=== PATIENT | male | born 1950 | race Caucasian/White ===

== ENCOUNTER 2020-07-20 23:13 | Emergency (ER) | payer OTHER ==
[~2020-07-20] VITALS: Ht 170.2 cm; Wt 86.2 kg
[~2020-07-20 23:13] MED LIST: LANS30EC; OXYACE5T PO; PARO30
[2020-07-20] MEDS ORDERED: AMOCLA875 PO (23:41)
[2020-07-20] MEDS ORDERED: Norco 5-325 Ta1 EACH PO (23:41)
== END 2020-07-20 23:47 | disposition home or self-care (01) ==
LOC: ER 23:13
DX: K08.89 Other specified disorders of teeth and supporting structures (principal); I10 Essential (primary) hypertension
CPT/HCPCS: 99282; A9270

== ENCOUNTER 2021-08-06 10:11 | Emergency (ER) | payer OTHER ==
[~2021-08-06] VITALS: Ht 170.2 cm; Wt 81.7 kg
[~2021-08-06 10:11] MED LIST changes: +AMOCLA875 PO; +Norco 5-325 Ta1 EACH PO
== END 2021-08-06 15:07 | disposition home or self-care (01) ==
LOC: ER 10:11
DX: C41.2 Malignant neoplasm of vertebral column (principal); I10 Essential (primary) hypertension; K21.9 Gastro-esophageal reflux disease without esophagitis; E78.00 Pure hypercholesterolemia, unspecified
CPT/HCPCS: 99283

== ENCOUNTER 2021-09-15 16:06 | Inpatient (IN) | payer OTHER ==
[~2021-09-15] VITALS: Ht 172.7 cm; Wt 73.2 kg
[2021-09-15 17:39] LABS: Hematocrit 18.5 % (37.0-53.0); Mean Corpuscular HGB 29.7 pg (26.0-34.0); Mean Corpuscular HGB Conc 32.4 g/dL (31.5-36.5); Mean Corpuscular Volume 92 fL (80-100); Mean Platelet Volume 8.7 fL (9.1-12.4); NRBC ABSOLUTE 0.09 K/mm3 (0.00-0.02); NRBC Auto 3.2 /100 WBC (0.0-0.2); Platelet Count 249 K/mm3 (150-400); RDW Coefficient Variation 16.6 % (11.7-14.2); RDW Standard Deviation 53.2 fL (35.1-46.3); Red Blood Cell Count 2.02 M/mm3 (4.30-5.90); White Blood Cell Count 2.83 K/mm3 (4.00-11.30)
[2021-09-15 18:09] LABS: Albumin, Blood 2.5 g/dL (3.4-5.0); Albumin/Globulin Ratio 0.6 (0.8-1.8); Bilirubin, Total 0.4 mg/dL (0.1-1.0); Bun/Creatinine Ratio 27.2 (12.0-20.0); Calcium, Blood 8.2 mg/dL (8.5-10.1); Creatinine, Blood 0.62 mg/dL (0.60-1.20); Globulin, Blood 3.9 g/dL (2.2-4.0); Potassium, Blood 4.2 mmol/L (3.5-5.5); Total Protein, Blood 6.4 g/dL (6.4-8.2)
[2021-09-15] MEDS ORDERED: MIRALAX17 GM PO (18:09)
[2021-09-15] MEDS ORDERED: GABA300 PO (18:09)
[2021-09-15] MEDS ORDERED: Budeprion Xl300 MG PO (18:10)
[2021-09-15] MEDS ORDERED: OMEP20ER PO (18:11)
[2021-09-15] MEDS ORDERED: MORP15ER PO (18:11)
[2021-09-15] MEDS ORDERED: SENN187 PO (18:12)
[2021-09-15] MEDS ORDERED: CALCIUM CIT 311 EAC7 PO (18:13)
[2021-09-15] MEDS ORDERED: ONDA4 PO (18:13)
[2021-09-15] MEDS ORDERED: IBUP800 PO (18:14)
[2021-09-15] MEDS ORDERED: DICLOFENAC SOD100 GM TOP (18:15)
[2021-09-15 18:21] LABS: BAND PERCENT MAN 18 % (0-8); BASOPHILS ABSOLUTE MAN 0.02 K/mm3 (0.00-0.23); BASOPHILS PERCENT MAN 1 % (0-2); EOSINOPHILS ABSOLUTE MAN 0.14 K/mm3 (0.00-0.68); EOSINOPHILS PERCENT MAN 5 % (0-6); LYMPHOCYTES ABSOLUTE MAN 0.36 K/mm3 (0.84-5.20); LYMPHOCYTES PERCENT MAN 13 % (21-46); METAMYELOCYTE ABSOLUTE MAN 0.02 K/mm3 (0.00-0.00); METAMYELOCYTE PERCENT MAN 1 % (0-0); MONOCYTES ABSOLUTE MAN 0.11 K/mm3 (0.16-1.47); MONOCYTES PERCENT MAN 4 % (4-13); MYELOCYTE ABSOLUTE MAN 0.02 K/mm3 (0.00-0.00); MYELOCYTE PERCENT MAN 1 % (0-0); NEUTROPHILS ABSOLUTE MAN 2.12 K/mm3 (1.96-9.15); SEG NEUTROPHILS PERCENT MAN 57 % (41-73); TOTAL CELLS COUNTED 100
[2021-09-15 21:08] LABS: Influenza A, PCR NEGATIVE (NEGATIVE); Influenza B, PCR NEGATIVE (NEGATIVE); Resp Syncytial Virus, PCR NEGATIVE (NEGATIVE); SARS-Cov-2 (COVID-19) PCR, MMC NEGATIVE (NEGATIVE)
[2021-09-16 04:08] LABS: Hematocrit 19.5 % (37.0-53.0); Hemoglobin 6.4 g/dL (13.5-17.5); Mean Corpuscular HGB 29.9 pg (26.0-34.0); Mean Corpuscular HGB Conc 32.8 g/dL (31.5-36.5); Mean Corpuscular Volume 91 fL (80-100); Mean Platelet Volume 8.3 fL (9.1-12.4); NRBC ABSOLUTE 0.05 K/mm3 (0.00-0.02); NRBC Auto 1.9 /100 WBC (0.0-0.2); Platelet Count 210 K/mm3 (150-400); RDW Coefficient Variation 15.8 % (11.7-14.2); RDW Standard Deviation 51.5 fL (35.1-46.3); Red Blood Cell Count 2.14 M/mm3 (4.30-5.90); White Blood Cell Count 2.66 K/mm3 (4.00-11.30)
[2021-09-16 04:46] LABS: Albumin, Blood 2.2 g/dL (3.4-5.0); Albumin/Globulin Ratio 0.6 (0.8-1.8); Bilirubin, Total 0.5 mg/dL (0.1-1.0); Bun/Creatinine Ratio 19.6 (12.0-20.0); Creatinine, Blood 0.61 mg/dL (0.60-1.20); Globulin, Blood 3.7 g/dL (2.2-4.0); Total Protein, Blood 5.9 g/dL (6.4-8.2)
--- NOTE | 2021-09-16 05:48 | NUR ---
STAFF ANESTHETIST SUMMARY PT IS AXO X4 AND COMMUNICATING APPROPRIATELY. PT DENYING FEELING SOB BUT DID REQUIRE 2L NC TO MAINTAIN O2 SATS >90%. BP WNL AND STABLE. PT AFEBRILE. TELE SHOWING SR IN THE 70'S THIS SHIFT. PT'S HGB STILL <7 THIS AM SO PROVIDER CONTACTED AND A 2ND UNIT OF PRBC'S WERE ORDERED. PT ABLE TO SLEEP COMFORTABLY FOR MAJORITY OF THE SHIFT. PT DENYING ANY CP OR PRESSURE THIS SHIFT. WILL REPORT TO ONCOMING RN.
[2021-09-16 05:57] LABS: BAND PERCENT MAN 5 % (0-8); BASOPHILS PERCENT MAN 0 % (0-2); EOSINOPHILS ABSOLUTE MAN 0.07 K/mm3 (0.00-0.68); EOSINOPHILS PERCENT MAN 3 % (0-6); LYMPHOCYTES ABSOLUTE MAN 0.42 K/mm3 (0.84-5.20); LYMPHOCYTES PERCENT MAN 16 % (21-46); METAMYELOCYTE ABSOLUTE MAN 0.02 K/mm3 (0.00-0.00); METAMYELOCYTE PERCENT MAN 1 % (0-0); MONOCYTES ABSOLUTE MAN 0.21 K/mm3 (0.16-1.47); MONOCYTES PERCENT MAN 8 % (4-13); MYELOCYTE ABSOLUTE MAN 0.02 K/mm3 (0.00-0.00); MYELOCYTE PERCENT MAN 1 % (0-0); NEUTROPHILS ABSOLUTE MAN 1.88 K/mm3 (1.96-9.15); SEG NEUTROPHILS PERCENT MAN 66 % (41-73); TOTAL CELLS COUNTED 100
--- NOTE | 2021-09-16 10:41 | NUR ---
NURSING PCU DAYSHIFT: Assumed care of pt at approx 0700. A/O, very pleasant, cooperative w/care. C/O mild general weakness and requires SBA for safety though is able to ambulate independently. Skin pale, slightly diaphoretic, no breakdown noted. Denies any pain at rest. Tele in place, NSR, no c/o CP/pressure, SBP 105, no noted edema. L/S w/bibasilar crackles, dyspnea w/exertion, moist/[employer] cough, respiratory discomfort w/deep inspiration. Abd SNT, BT+, voiding w/o difficulty. PIV x2, s/l. No s/s of acute distress this a.m. 2nd unit of PRBC's completed as ordered, tolerated well. Educated pt on importance of deep breathing exercises and provided w/bedside I/S. Held a.m. lovenox d/t anemia until verified w/PMD okay to administer. Pt denies any current needs or questions regarding plan of care, f/u H&H at 1200, cont to monitor for any changes.
[2021-09-16 12:46] LABS: Hematocrit 24.4 % (37.0-53.0); Hemoglobin 8.4 g/dL (13.5-17.5)
--- NOTE | 2021-09-16 17:20 | NUR ---
NURSING PCU DAYSHIFT SUMMARY: No significant changes noted t/o the shift. Pt did have low grade temp of 100.7, tylenol administered as ordered. Pt has been compliant in breathing exercises and use of I/S. Placed on RA, tolerating well w/O2 sat mid 90's. Cardiac status unchanged. Spouse currently at bedside and was provided w/update regarding plan of care. Palliative at bedside this afternoon for supportive visit. No s/s of acute distress at this time. Call light in reach, cont to monitor for any changes.
--- NOTE | 2021-09-16 17:30 | NUR ---
Supportive visit this afternoon. Pt resting in bed and is A&O. Pt denies pain, anxiety, dypnea, and nausea. Pt's spouse is at bedside. Offered therapeutic listening as Pt reports living at home with spouse. Pt has adult children some of whom live local and some live out of state. Pt reports supportive family with children who will drop everything to assist if needed. Listened as Pt and spouse report remaining in a positive state and like to focus on being optimistic regarding his cancer. Continued therapeutic listening and offered suggestions as he continues with treatment. Pt reports his appetite has decreased recently. Encouraged Pt to discuss with his oncologist and PCP if appetite continues to decline. Continued therapeutic listening. Pt is a and this RN thanked him for his service. Pt reports serving in the [employer]. Pt reports being active and likes exercising. He reports used to lifting weights but no longer. Answered questions throughout visit. Pt and spouse express appreciation and report no concerns at this time. Spoke with Pt's Primary RN Chica and discussed case. Palliative Care will remain available.
[2021-09-17 04:18] LABS: BASOPHILS ABSOLUTE AUTO 0.02 K/mm3 (0.00-0.23); BASOPHILS PERCENT AUTO 1 % (0-2); EOSINOPHILS ABSOLUTE AUTO 0.12 K/mm3 (0.00-0.68); EOSINOPHILS PERCENT AUTO 4 % (0-6); Hematocrit 24.4 % (37.0-53.0); Hemoglobin 8.1 g/dL (13.5-17.5); IMMATURE GRAN ABSOLUTE AUTO 0.18 K/mm3 (0.00-0.10); IMMATURE GRAN PERCENT AUTO 6 % (0-1); LYMPHOCYTES ABSOLUTE AUTO 0.51 K/mm3 (0.84-5.20); LYMPHOCYTES PERCENT AUTO 17 % (21-46); MONOCYTES ABSOLUTE AUTO 0.34 K/mm3 (0.16-1.47); MONOCYTES PERCENT AUTO 11 % (4-13); Mean Corpuscular HGB 29.8 pg (26.0-34.0); Mean Corpuscular HGB Conc 33.2 g/dL (31.5-36.5); Mean Corpuscular Volume 90 fL (80-100); Mean Platelet Volume 8.4 fL (9.1-12.4); NEUTROPHILS ABSOLUTE AUTO 1.83 K/mm3 (1.96-9.15); NEUTROPHILS PERCENT AUTO 61 % (41-73); NRBC ABSOLUTE 0.06 K/mm3 (0.00-0.02); Platelet Count 224 K/mm3 (150-400); RDW Coefficient Variation 16.1 % (11.7-14.2); RDW Standard Deviation 51.4 fL (35.1-46.3); Red Blood Cell Count 2.72 M/mm3 (4.30-5.90)
[2021-09-17 04:54] LABS: Albumin, Blood 2.3 g/dL (3.4-5.0); Albumin/Globulin Ratio 0.6 (0.8-1.8); Bilirubin, Total 0.5 mg/dL (0.1-1.0); Calcium, Blood 8.2 mg/dL (8.5-10.1); Creatinine, Blood 0.6 mg/dL (0.60-1.20); Potassium, Blood 4.3 mmol/L (3.5-5.5); Total Protein, Blood 6.3 g/dL (6.4-8.2)
--- NOTE | 2021-09-17 05:53 | NUR ---
ORE DIGGER SUMMARY PT IS AXO X4 AND COMMUNICATNG APPROPRIATELY. PT DENYING ANY PAIN OR NAUSEA THIS SHIFT. VSS AND AFEBRILE. TELE SHOWING SR IN THE 80'S. NO NEW CHANGES THE PT SLEPT FOR THE MAJORITY OF THE NIGHT WITH THE CALL LIGHT WITHIN REACH. WILL REPORT TO ONCOMING RN.
[2021-09-17 09:29] LABS: Stool Occult Blood Guaiac 1 Neg (Neg)
[2021-09-17] MEDS ORDERED: AZIT500 PO (11:09)
[2021-09-17] MEDS ORDERED: CEFPODOXIME PR200 MG PO (11:10)
[2021-09-17] MEDS ORDERED: VISBIOME 112.51 EACH PO (11:10)
[2021-09-17 12:06] LABS: Percent Saturation 27.5 % (20.0-50.0)
--- NOTE | 2021-09-17 13:14 | NUR ---
Spiritual care visit conducted. Patient is lying in bed and alert. He tells me about his cancer diagnosis and his other medical problems. We talk about the mindset of a survivor, of being an example of how to stay steady with medical chaos surrounding him and of zachariah and lightheartedness while life feels a bit heavy. He shares his tips on being positive as he focuses of what he can do and what he does have and on investing in his grown children. I normalize his experience, reinforce his helpful attitudes and practices and provide therapeutic listening, a calming presence and gentle funeral prearrangement counselor. Patient responds well and shows signs of increased hope and catharsis. I will continue to remain available to patient and family.
--- NOTE | 2021-09-17 15:15 | NUR ---
DR BURGOS NOTIFIED OF ECHO RESULTS. PT IS OK TO DISCHARGE HOME WITH O2.
--- NOTE | 2021-09-17 15:42 | NUR ---
PT DISCHARGED HOME WITH , ALL BELONGINGS SENT HOME WITH PT. IVs REMOVED, WNL. DISCHARGE TEACHING REVIEWED INCLUDING FOLLOW UP APPOINTMENTS, MEDICATION LIST, EDUCATION AND HOME OXYGEN DELIVERY. PT AND VERBALIZE UNDERSTANDING OF DISCHARGE TEACHING AND HAVE NO QUESTIONS OR CONCERNS AT THIS TIME. NO FURTHER DISCHARGE NEEDS IDENTIFIED.
== END 2021-09-17 15:37 | disposition home or self-care (01) | DRG 177 ==
LOC: ER 16:06 → PCU 21:22
PROVIDERS: Internal Medicine; Student in an Organized Health Care Education/Training Program; ADMIT Internal Medicine
PROC: 30233N1 Transfusion of Nonautologous Red Blood Cells into Peripheral Vein, Percutaneous Approach (ICD-10-PCS; principal; 2021-09-15)
DX: J15.6 Pneumonia due to other Gram-negative bacteria (principal); J96.01 Acute respiratory failure with hypoxia; E43 Unspecified severe protein-calorie malnutrition; C78.00 Secondary malignant neoplasm of unspecified lung; C79.51 Secondary malignant neoplasm of bone; M84.48XA Pathological fracture, other site, initial encounter for fracture; C61 Malignant neoplasm of prostate; Z66 Do not resuscitate; Z20.822 Contact with and (suspected) exposure to COVID-19; F32.A Depression, unspecified; D72.819 Decreased white blood cell count, unspecified; R91.1 Solitary pulmonary nodule; K21.9 Gastro-esophageal reflux disease without esophagitis; I10 Essential (primary) hypertension; D64.9 Anemia, unspecified; F41.1 Generalized anxiety disorder; K59.03 Drug induced constipation; T40.2X5A Adverse effect of other opioids, initial encounter; E78.00 Pure hypercholesterolemia, unspecified; Z68.25 Body mass index [BMI] 25.0-25.9, adult; Z79.2 Long term (current) use of antibiotics; Z79.899 Other long term (current) drug therapy
CPT/HCPCS: 0241U; 36415; 36430; 71260; 80053; 82270; 82607; 82728; 82746; 83540; 83550; 83605; 83735; 83880; 84145; 84484; 85014; 85018; 85025; 86850; 86900; 86901; 86923; 93005; 93010; 93306; 94760; 94762; 96374-59; 96375-59; 99285-25; A9270; J0456; J0696; J1650; J7030; J7040; J7060; P9016; Q9967

== ENCOUNTER 2021-09-21 21:08 | Inpatient (IN) | payer OTHER ==
[~2021-09-21] VITALS: Ht 170.2 cm; Wt 58.6 kg
[~2021-09-21 21:08] MED LIST changes: +AZIT500 PO; +Budeprion Xl300 MG PO; +CALCIUM CIT 311 EAC7 PO; +CEFPODOXIME PR200 MG PO; +DICLOFENAC SOD100 GM TOP; +GABA300 PO; +IBUP800 PO; +MIRALAX17 GM PO; +MORP15ER PO; +OMEP20ER PO; +ONDA4 PO; +SENN187 PO; +VISBIOME 112.51 EACH PO
[2021-09-21 21:24] LABS: Base Excess Venous 1.6 mmol/L; Bicarbonate Venous 25.6 mmol/L (24.0-30.0); PCO2 Venous 37.2 mmHg (38-42); PO2 Venous 44.3 mmHg (38-42); pH Blood Venous 7.45 (7.34-7.37)
[2021-09-21 21:28] LABS: BASOPHILS ABSOLUTE AUTO 0.01 K/mm3 (0.00-0.23); BASOPHILS PERCENT AUTO 0 % (0-2); EOSINOPHILS ABSOLUTE AUTO 0.04 K/mm3 (0.00-0.68); EOSINOPHILS PERCENT AUTO 1 % (0-6); Hematocrit 24.9 % (37.0-53.0); Hemoglobin 8.4 g/dL (13.5-17.5); IMMATURE GRAN ABSOLUTE AUTO 0.07 K/mm3 (0.00-0.10); IMMATURE GRAN PERCENT AUTO 2 % (0-1); LYMPHOCYTES ABSOLUTE AUTO 0.45 K/mm3 (0.84-5.20); LYMPHOCYTES PERCENT AUTO 13 % (21-46); MONOCYTES ABSOLUTE AUTO 0.22 K/mm3 (0.16-1.47); MONOCYTES PERCENT AUTO 7 % (4-13); Mean Corpuscular HGB Conc 33.7 g/dL (31.5-36.5); Mean Corpuscular Volume 89 fL (80-100); Mean Platelet Volume 8.4 fL (9.1-12.4); NEUTROPHILS ABSOLUTE AUTO 2.62 K/mm3 (1.96-9.15); NEUTROPHILS PERCENT AUTO 77 % (41-73); NRBC ABSOLUTE 0.07 K/mm3 (0.00-0.02); NRBC Auto 2.1 /100 WBC (0.0-0.2); Platelet Count 280 K/mm3 (150-400); RDW Coefficient Variation 15.9 % (11.7-14.2); RDW Standard Deviation 51.6 fL (35.1-46.3); White Blood Cell Count 3.41 K/mm3 (4.00-11.30)
[2021-09-21 22:02] LABS: Albumin, Blood 2.1 g/dL (3.4-5.0); Albumin/Globulin Ratio 0.5 (0.8-1.8); Bilirubin, Total 0.5 mg/dL (0.1-1.0); Bun/Creatinine Ratio 37.8 (12.0-20.0); Calcium, Blood 8.2 mg/dL (8.5-10.1); Creatinine, Blood 0.5 mg/dL (0.60-1.20); Globulin, Blood 4.5 g/dL (2.2-4.0); Potassium, Blood 4.3 mmol/L (3.5-5.5); Total Protein, Blood 6.6 g/dL (6.4-8.2)
[2021-09-22 00:19] LABS: SARS-Cov-2 (COVID-19) PCR, MMC NEGATIVE (NEGATIVE)
--- NOTE | 2021-09-22 04:23 | NUR ---
patient recieved from ER in stable condition. Coarse lungs sounds are audible. Patient with use of accessory muscles to aid with breathing. O2/4L NC keeping patient at 90%. Patient able to answer all admit questions with pauses to catch his breath. Telemetry applied. patient in NSR at 92bpm. Patient voided per urinal. He recieved antibiotics in the ED and I gave him a dose of steroids. Discussed with patient his cancer history and recent radiation treatments. Patient states his radiation was in his lumbar region and his neck. Patient states he has not talked with his oncologist about his lung mets. Patient states he is not leaving the hospital until he can get up and walk around in the hallways without being SOB. patient lives at home with his and would like to return home at [place].
[2021-09-22 05:31] LABS: BASOPHILS ABSOLUTE AUTO 0.02 K/mm3 (0.00-0.23); BASOPHILS PERCENT AUTO 1 % (0-2); EOSINOPHILS ABSOLUTE AUTO 0.05 K/mm3 (0.00-0.68); EOSINOPHILS PERCENT AUTO 1 % (0-6); Hemoglobin 8.4 g/dL (13.5-17.5); IMMATURE GRAN ABSOLUTE AUTO 0.06 K/mm3 (0.00-0.10); IMMATURE GRAN PERCENT AUTO 2 % (0-1); LYMPHOCYTES PERCENT AUTO 8 % (21-46); MONOCYTES ABSOLUTE AUTO 0.19 K/mm3 (0.16-1.47); MONOCYTES PERCENT AUTO 5 % (4-13); Mean Corpuscular HGB 29.2 pg (26.0-34.0); Mean Corpuscular HGB Conc 32.3 g/dL (31.5-36.5); Mean Corpuscular Volume 90 fL (80-100); Mean Platelet Volume 8.5 fL (9.1-12.4); NEUTROPHILS ABSOLUTE AUTO 3.25 K/mm3 (1.96-9.15); NEUTROPHILS PERCENT AUTO 84 % (41-73); NRBC ABSOLUTE 0.03 K/mm3 (0.00-0.02); NRBC Auto 0.8 /100 WBC (0.0-0.2); Platelet Count 267 K/mm3 (150-400); RDW Coefficient Variation 16.1 % (11.7-14.2); RDW Standard Deviation 52.7 fL (35.1-46.3); Red Blood Cell Count 2.88 M/mm3 (4.30-5.90); White Blood Cell Count 3.87 K/mm3 (4.00-11.30)
[2021-09-22 06:12] LABS: Albumin, Blood 2.3 g/dL (3.4-5.0); Albumin/Globulin Ratio 0.5 (0.8-1.8); Bilirubin, Total 0.7 mg/dL (0.1-1.0); Bun/Creatinine Ratio 27.3 (12.0-20.0); Calcium, Blood 8.8 mg/dL (8.5-10.1); Creatinine, Blood 0.48 mg/dL (0.60-1.20); Globulin, Blood 4.5 g/dL (2.2-4.0); Potassium, Blood 4.1 mmol/L (3.5-5.5); Total Protein, Blood 6.8 g/dL (6.4-8.2)
--- NOTE | 2021-09-22 14:54 | NUR ---
TODAY I FOUND MR BLUE ON 4 LPM FIO2 VIA NASAL CANNULA FOR SPO2 OF 81%. SWITCHED PT TO AN OXIMIZER AT 9 LPM FIO2 FOR SPO2 OF 90% BUT NOT MAINTAINED, SWITCHED PT TO HEATED HIGH FLOW NASAL CANNULA AT 50 L FLOW AND 60% FIO2 FOR SPO2 94%. I LEFT PT THINKING ALL WAS GOOD BUT CAME BACK TO FIND SPO2 AT 84%. I NOTICED PT MOUTH BREATHING AND MENTIONED IT TO PT, PT RESPONDED THAT WHEN HE BREATHS THROUGH HIS NOSE IT HURTS IN HIS CHEST WITH EVERY BREATH. I SWITCHED PT TO A 55% FIO2 VENTI MASK FOR SPO2 86%, SWITCHED TO A NRBM FOR SPO2 94%. I SPOKE WITH PT MD ABOUT THIS OXYGEN ISSUE WITH PT. I ALSO ADMINISTERED A DUONEB WITH NO CHANGE TO SPO2.
--- NOTE | 2021-09-22 17:27 | NUR ---
SHIFT SUMMARY A/OX4, BEDREST D/T DYSPNEA WITH MINIMAL EXERTION. PT ON 4L DURING START OF SHIFT, AIRVO WAS TRIALED BUT STILL UNABLE TO MAINTAIN SATS. CURRENTLY ON NRB WITH SATS GREATER THAN 90. REPORTS MINIMAL PAIN, SCHEDULED MS CONTIN GIVEN. VSS, BED IN LOWEST POSITION WITH CALL LIGHT IN REACH. WILL CONTINUE TO MONITOR AND REPORT TO ONCOMING RN.
[2021-09-23 04:58] LABS: Hematocrit 26.1 % (37.0-53.0); Hemoglobin 8.4 g/dL (13.5-17.5); Mean Corpuscular HGB 29.1 pg (26.0-34.0); Mean Corpuscular HGB Conc 32.2 g/dL (31.5-36.5); Mean Corpuscular Volume 90 fL (80-100); Mean Platelet Volume 8.6 fL (9.1-12.4); NRBC ABSOLUTE 0.03 K/mm3 (0.00-0.02); NRBC Auto 0.6 /100 WBC (0.0-0.2); Platelet Count 278 K/mm3 (150-400); RDW Standard Deviation 52.2 fL (35.1-46.3); Red Blood Cell Count 2.89 M/mm3 (4.30-5.90); White Blood Cell Count 5.38 K/mm3 (4.00-11.30)
[2021-09-23 05:36] LABS: Albumin, Blood 2.1 g/dL (3.4-5.0); Albumin/Globulin Ratio 0.5 (0.8-1.8); Bilirubin, Total 0.5 mg/dL (0.1-1.0); Bun/Creatinine Ratio 37.5 (12.0-20.0); Calcium, Blood 8.8 mg/dL (8.5-10.1); Creatinine, Blood 0.48 mg/dL (0.60-1.20); Globulin, Blood 4.4 g/dL (2.2-4.0); Magnesium, Blood 2.6 mg/dL (1.6-2.4); Potassium, Blood 4.7 mmol/L (3.5-5.5); Thyroid Stimulating Hormone 0.481 uIU/mL (0.360-4.800); Total Protein, Blood 6.5 g/dL (6.4-8.2)
--- NOTE | 2021-09-23 05:58 | NUR ---
SHIFT SUMMARY NOC: AT START OF SHIFT PT ON NON REBREATHER AT 15 L. PT HAD ANXIETY ATTACK STATING HE COULD NOT BREATHE AND HIS O2 SATS DROPPED TO HIGH 70'S. PT COACHED THROUGHT ATTACK AND RECOVERED FAIRLY QUICKLY. PT GIVEN SCHEDULED MORPHINE TABLET WHICH SEEMED TO HELP EASE ANXIETY AND HELP WITH BREATHING. PT TITRATED TO 13 L NON REBREATHER THIS MORNING AND IS SATTING 92-94%. PT IS STILL UNABLE TO GET OUT OF BED AND EXERT HIMSELF WITHOUT DESATTING QUICKLY. PT REMAINS ON BED REST.
[2021-09-23 10:19] LABS: Vancomycin, Trough 8.2 ug/mL (5.0-10.0)
--- NOTE | 2021-09-23 16:20 | NUR ---
SHIFT SUMMARY PATIENT IS ALERT AND ORIENTED X4. PATIENT HAS BEEN PLEASENT AND COOPERATIVE WITH CARE. PATIENT HAS BEEN ON NONREBREATHER MOST OF SHIFT, TRIED CHANGING TO HIGH FLOW NASAL CANNULA FOR MEALS AND MEDS AND PATIENT DESATED TO MUCH. PATIENT HAS HAD NO ACUTE EVENTS THIS SHIFT. PATIENT HAS NO COMPLAINTS OF PAIN, NAUSEA, SOB OR VOMITTING. BED IN LOCKED AND LOWEST POSITION. CALL LIGHT IN PLACE. WILL MONITOR UNTIL SHIFT CHANGE.
--- NOTE | 2021-09-24 05:45 | NUR ---
SUMMARY PT CONTINUES TO HAVE EPISODES OF SOB AT TIMES. PT DOES RECOVER WELL. PT HAD NO OTHER COMPLAINTS. PT HAS BEEN ABLE TO SLEEP OFF AND ON. PT CURRENTLY RESTING COMFORTABLY. CALL LIGHT IN REACH.
--- NOTE | 2021-09-24 05:46 | NUR ---
PT A/O X 4. PT VS STABLE. PT IS ON AIRVO 50L/80% FIO2 SPON >93%. PT DESATS QUICKLY WITH ANXIETY AND EXERTION INTO MID 80'S BUT RECOVERS QUICKLY WHEN COACHED TO CALM DOWN. PT WAS GIVEN SHEDULED MORPHINE WHICH HELPED BREATHING. PT IS ON BEDREST. PT USES BEDSIDE URINAL AND CALLS APPROPRIATELY. PT IS CURRENTLY RESTING WITH CALL LIGHT ON AND BED IN LOWEST POSITION.
--- NOTE | 2021-09-24 08:50 | NUR ---
[facility] TRANSFER CONTACT: RN SPOKE WITH MAYDA, SHE IS THE AUDIT MACHINE OPERATOR FOR THE [facility]. HER NUMBER IS [phone]. PROVIDED HER WITH DR. HAQUE'S NUMBER SO THAT THEY COULD SPEAK DIRECTLY. MAYDA REPORTED THAT DUE TO THE PATIENT'S O2 NEEDS, HE WILL NEED TO BE PLACED ON A WAITING LIST FOR THE ICU AT THE ID.
[2021-09-24 09:32] LABS: Vancomycin, Trough 17.4 ug/mL (5.0-10.0)
--- NOTE | 2021-09-24 11:25 | NUR ---
TRANSFER TO ICU/REPORT FROM EROS RN PT ARRIVES TO ICU AT 1100. BIPAP IN PLACE, 08/11/70%, TV 800'S. TACHYPENIC. ANXIOUS. STATES ATIVAN ADMINISTED DEMONSTRATOR ELECTRIC GAS APPLIANCES HELPED. PLAN TO START PRECEDEX. LUNGS DIM THROUGHOUT. NO COUGH NOTED. MANAGING SECRETIONS. ABLE TO SPEAK IN ONE-TWO WORD REPLIES. ST ON MONITOR, RATE 100'S. BP STABLE. PT FOLLOWING SIMPLE COMMANDS. ABLE TO ASSIST c TURNS. PIV TO JENAE MEEHAN INFUSING. AT BEDSIDE, DR BRUNER ROUNDED. WILL CONTINUE TO MONITOR.
--- NOTE | 2021-09-24 11:35 | NUR ---
MORNING AND INCREASED WORK OF BREATHING: AT THE START OF THE SHIFT, PATIENT RESTING COMFORTABLY IN BED. PATIENT HAS SOME EPISODES OF COUGHING THAT LEADS TO SPO2 FROM 84%-88%. PATIENT ABLE TO USE BREATHING TECHNIQUES TO SLOW THE RATE AND INCREASE THE DEPTH. PATIENT ABLE TO RECOVER WITHIN A MINUTE. PATIENT REPORTS A CHEST WALL PAIN WITH DEEP BREATHS. MEDICATED WITH SCHEDULED MORPHINE (SEE EMAR). PATIENT REPORTS THAT HE IS "WORKING ON HIS JOB" WHICH IS TO BREATH WELL. THE MORNING PROGRESSED, PATIENT DEVELOPED INCREASED WORKLOAD WITH BREATHING, ESPECIALLY WITH COUGH. SCHEDULED MORPHINE AND PRN COUGH SYRUP DID NOT ASSIST. CALLED RT FOR A BREATHING TREATMENT. CALLED DR. HAQUE FOR ANTI-ANXIETY AND TO UPDATE ON PATIENT'S INCREASED BREATHING REQUIREMENTS. RT RECOMMENDED TRANSFER TO ANOTHER UNIT. SHE DISCUSSED SUCH WITH DR. HAQUE. ORDERS IN TO TRANSFER TO ICU. BEDSIDE REPORT GIVEN TO JOVANNI ESTES. PATIENT'S AT BEDSIDE AND PROVIDED INFORMATION ON NEED TO TRANSFER.
[2021-09-24 14:51] LABS: Adenovirus Not Detected (NOT DETECT); Bordetella pertussis Not Detected (NOT DETECT); Chlamydophila pneumoniae Not Detected (NOT DETECT); Coronavirus 229E Not Detected (NOT DETECT); Coronavirus HKU1 Not Detected (NOT DETECT); Coronavirus NL63 Not Detected (NOT DETECT); Coronavirus OC43 Not Detected (NOT DETECT); Human Metapneumovirus Not Detected (NOT DETECT); Human Rhinovirus/Enterovirus Not Detected (NOT DETECT); Influenza A/2009-H1 Not Detected (NOT DETECT); Influenza A/H1 Not Detected (NOT DETECT); Influenza A/H3 Not Detected (NOT DETECT); Influenza B Not Detected (NOT DETECT); Mycoplasma pneumoniae Not Detected (NOT DETECT); Parainfluenza Virus 1 Not Detected (NOT DETECT); Parainfluenza Virus 2 Not Detected (NOT DETECT); Parainfluenza Virus 3 Not Detected (NOT DETECT); Parainfluenza Virus 4 Not Detected (NOT DETECT); Respiratory Syncytial Virus Not Detected (NOT DETECT); SARS-Cov-2 (COVID-19), BioFire Not Detected (NOT DETECT)
--- NOTE | 2021-09-24 17:38 | NUR ---
SHIFT SUMMARY PT TRANSFERRED TO ICU THIS SHIFT, SEE PREVIOUS NOTE. ON BIPAP 16/7/65% FOR MOST OF SHIFT, TRANSITIONED TO AIRVO 50/60%. TOLERATING WELL. DESATS c COUGHING OR EXERTION BUT RECOVERS QUICKLY. PRECEDEX STARTED FOR ANXIETY. RR RATE IMPROVED TO LOW 20'S. PT APPEARS MORE COMFORTABLE. NSR, RATE 80'S, BP STABLE. LUNGS DIM THROUGHOUT. NON PRODUCTIVE COUGH. A&OX 4. ABLE TO REPOSITION SELF IN BED. AT BEDSIDE. POWERGLIDE PLACED TO LUE, DRESSING C/D/I. WILL CONTINUE TO MONITOR UNTIL REPORT TO ONCOMING NURSE.
--- NOTE | 2021-09-24 19:30 | NUR ---
PT REPORT RECEIVED, SAFETY CHECK COMPLETED, ASSUMED PT CARE. PT SLEEPING SUPINE IN BED. VSS.
[2021-09-25 05:29] LABS: BASOPHILS PERCENT AUTO 0 % (0-2); EOSINOPHILS ABSOLUTE AUTO 0.01 K/mm3 (0.00-0.68); EOSINOPHILS PERCENT AUTO 0 % (0-6); Hematocrit 24.3 % (37.0-53.0); Hemoglobin 7.8 g/dL (13.5-17.5); IMMATURE GRAN ABSOLUTE AUTO 0.13 K/mm3 (0.00-0.10); IMMATURE GRAN PERCENT AUTO 3 % (0-1); LYMPHOCYTES ABSOLUTE AUTO 0.41 K/mm3 (0.84-5.20); LYMPHOCYTES PERCENT AUTO 9 % (21-46); MONOCYTES ABSOLUTE AUTO 0.14 K/mm3 (0.16-1.47); MONOCYTES PERCENT AUTO 3 % (4-13); Mean Corpuscular HGB 28.6 pg (26.0-34.0); Mean Corpuscular HGB Conc 32.1 g/dL (31.5-36.5); Mean Corpuscular Volume 89 fL (80-100); Mean Platelet Volume 8.7 fL (9.1-12.4); NEUTROPHILS ABSOLUTE AUTO 4.08 K/mm3 (1.96-9.15); NEUTROPHILS PERCENT AUTO 86 % (41-73); NRBC ABSOLUTE 0.06 K/mm3 (0.00-0.02); NRBC Auto 1.3 /100 WBC (0.0-0.2); Platelet Count 261 K/mm3 (150-400); RDW Coefficient Variation 15.8 % (11.7-14.2); RDW Standard Deviation 50.4 fL (35.1-46.3); Red Blood Cell Count 2.73 M/mm3 (4.30-5.90); White Blood Cell Count 4.77 K/mm3 (4.00-11.30)
[2021-09-25 05:41] LABS: Bun/Creatinine Ratio 47.9 (12.0-20.0); Calcium, Blood 8.2 mg/dL (8.5-10.1); Creatinine, Blood 0.46 mg/dL (0.60-1.20); Potassium, Blood 4.5 mmol/L (3.5-5.5)
--- NOTE | 2021-09-25 05:45 | NUR ---
SHIFT SUMMERY: PT HAS SLEPT VERY WELL THROUGH OUT THE NIGHT AND HAS MOSTLY DENIED COMPLAINT WITH THE EXEPTION OF DYSPNEA WITH ANY TYPE OF EXERTION, INCLUDING USING THE URINAL. AIRVO NOW AT 50L AND 75%. VSS OTHERWISE STABLE. PT'S PAIN AND ANXIETY WELL CONTROLLED. PT ABLE TO WAKE TO VOICE WITH EASE WHEN ASLEEP.
--- NOTE | 2021-09-25 08:06 | NUR ---
ASSUMPTION OF CARE RECEIVED REPORT FROM CROW QUIÑONEZ AT 0715, ASSUMED CARE OF PATIENT. PATIENT IN BED. A/O WITH AIRVO IN PLACE 50L/75%. PATIENT INTIALLY REPORTED FEELINGS OF ANXIETY AND SOB. INCREASED FIO2 TO 100%, PATIENT SLOW TO RECOVER BUT CAME UP TO LOW 90'S. DECREASED FIO2 BACK TO 75%. VITALS STABLE OTHERWISE. PRECEDEX AT 0.2MCG/KG. PATIENT STATING AFTER SP02 RECOVERED HE FELT LESS ANXIOUS AND THAT THIS OCCURS EVERY MORNING AFTER HE WAKES UP. WILL REVIEW ORDERS AND TREAT PRESCRIBED.
[2021-09-25 09:24] LABS: Vancomycin, Trough 16.8 ug/mL (5.0-10.0)
--- NOTE | 2021-09-25 17:59 | NUR ---
SHIFT SUMMARY PATIENT A/O, PLEASANT AND COOPERATIVE. REMAINED ON PRECEDEX OF 0.2MCG/KG THROUGH SHIFT STATING IT HAS BEEN VERY HELPFUL FOR HIM. FREQUENT BOOSTS OF 100% FIO2 WITH ACTIVITY. AT REST MAINTAINS SATS ABOVE 90% WITH AIRVO SETTINGS 50L/75%. DECLINES MEALS, STATING DECREASED APPETITE. BROUGHT FRUIT, PATIENT TOLERATED APPLE AND BANANA WELL WELL PO FLUIDS. UTILIZES URINAL INDEPENDENTLY. AT BEDSIDE THROUGH DAY. BEGAN TRANSFER PROCESS TO [facility], AWAITING BED AVAILABILITY AT THIS TIME. WILL CONTINUE TO MONITOR AND REPORT TO ONCOMING RN.
--- NOTE | 2021-09-25 21:00 | NUR ---
ASSUMED CARE OF PATIENT AT 1900, CHAO HAD JUST AWOKEN FROM A NAP, HE BEGAN COUGHING, SATS CONTINUED TO DROP IN TO THE MID 70S DURING COUGHING SPELL, AIRVO INCREASED TO 100% SEVERAL TIMES TO REGAIN ADEQUATE SATURATION, PT FANNING HIMSELF, DENIES NEED FOR BEDSIDE FAN. CALL TO FOR COUGH MED, ORDERS RECEIVED. HS MEDS GIVEN WHICH DO INCLUDE HUMBID LA. PT STATES PAIN IS A LEVEL 2 IN HIS THROAT. HE USES THE URINAL APPROPRIATELY AND DENIES NEED FOR ASSISTANCE WITH POSITION CHANGES. HE IS A/O AND ABLE TO MAKE HIS NEEDS KNOWN.
[2021-09-26 04:28] LABS: Hematocrit 25.4 % (37.0-53.0); Hemoglobin 8.5 g/dL (13.5-17.5); Mean Corpuscular HGB 29.6 pg (26.0-34.0); Mean Corpuscular HGB Conc 33.5 g/dL (31.5-36.5); Mean Corpuscular Volume 89 fL (80-100); Mean Platelet Volume 8.7 fL (9.1-12.4); NRBC ABSOLUTE 0.11 K/mm3 (0.00-0.02); NRBC Auto 1.8 /100 WBC (0.0-0.2); Platelet Count 305 K/mm3 (150-400); RDW Coefficient Variation 15.6 % (11.7-14.2); RDW Standard Deviation 49.6 fL (35.1-46.3); Red Blood Cell Count 2.87 M/mm3 (4.30-5.90); White Blood Cell Count 6.03 K/mm3 (4.00-11.30)
--- NOTE | 2021-09-26 04:31 | NUR ---
CHAO HAS BEEN RESTING MOST OF THE NIGHT, WHEN HE IS AWAKENED HE BEGINS COUGHING WHEREUPON HE DROPS SATS TO THE MID 70S AND NEEDS A BOOST OF 100%. HE RECOVERS WELL WITH HIS OWN FOCUSED BREATHING, HE CONTINUES ON PRECEDEX @ 0.2, NS @ TKO
[2021-09-26 04:48] LABS: Albumin, Blood 2.1 g/dL (3.4-5.0); Albumin/Globulin Ratio 0.5 (0.8-1.8); Bilirubin, Total 0.6 mg/dL (0.1-1.0); Calcium, Blood 8.2 mg/dL (8.5-10.1); Creatinine, Blood 0.53 mg/dL (0.60-1.20); Potassium, Blood 4.6 mmol/L (3.5-5.5); Total Protein, Blood 6.1 g/dL (6.4-8.2)
--- NOTE | 2021-09-26 05:42 | NUR ---
SUMMARY: CHAO HAS BEEN SLEEPING ON AND OFF, HE CONTINUES ON AIRVO 50L/70%. HE MAINTAINS SATS AT 94% OR GREATER AT REST. WHEN AWAKENED OR STIRRING IN BED HIS SATS WILL DROP TO MID-LO 70'S WITH DRY COUGH. HE IS ABLE TO RECOVER WITH BOOST OF 100% FIO2. LACK OF APPETITE, TAKING WATER OK, MEDS SWALLOWED WITHOUT ISSUE. PLEASANT AND COOPERATIVE, FRUSTRATED. PRECEDEX @ 0.2, NS TKO. VOIDS PER URINAL WITHOUT INCIDENT. AWAIT ROOM FOR PATIENT AT PA IN [place] TO CONTINUE TX FOR HIS CANCER. CONTINUES TO BE ABLE TO MAKE HIS NEEDS KNOWN.
--- NOTE | 2021-09-26 09:19 | NUR ---
Coleman of Care: Care assumed at 0700hr. Patient sleeping, easily roused to verbal stimuli. Currently on Airvo NC at 55L/70%. Had coughing spell shortly after shift change which causes SOB and decrease in spO2 to 85-88%. Also caused anxiety, treated with prn ativan with good effect. Patient does well to control breathing and returns to baseline in approx 10min. At baseline patient without dyspnea/SOB, tolerating Airvo, spO2- 91-95%, all other VSS. C/o pain to lt side, effectively managed with scheduled MS Contin. Peripheral IV and Power-glide patent and intact. Voiding using urinal in bed. Concern for aspiration this morning on dry bread dish provided with breakfast tray. Dr. Vale ordered ST eval. Received call from [facility] instructional technology coordinator, informed it is not likely a bed will become available today. Will inform Dr. Vale and Dr. Snell about call from [place]. Will continue to monitor.
--- NOTE | 2021-09-26 18:08 | NUR ---
Shift Summary: Patient remained stable throughout shift. No further "coughing fits" following this mornings episode. Speech therapy eval this morning, patient then made strict NPO r/t concern for aspiration. Tolerated Airvo NC throughout shift, FiO2 65-90%, but mostly at 70%. Slight and short desaturation with activity i.e using urinal, but quickly recovers. All other VSS. Peripheral IV and Powerglide remain patent and intact. Precedex @ 0.2 mcg/kg/hr stopped this afternoon. Patient remains calm and cooperative. Call light in reach, makes needs known. Will continue to monitor until report to NOC shift RN.
--- NOTE | 2021-09-26 20:15 | NUR ---
ASSUMED CARE OF PATIENT, HE IS RESTING QUIETLY, TKO NS INFUSING. PT DENIES ANY NEEDS AT THIS TIME, HE STATES HE WOULD JUST LIKE TO SLEEP. LUNGS DIMINISHED WITH SLIGHT RALES, AIRVO @ 50L/70%, COUGHING SPELL AFTER THE DEEP BREATHS, BOOST OF 100% GIVEN. ABDOMEN SOFT, NON TENDER, PULSES PALP X 4, <3SEC CAP REFILL, USES URINAL NEEDED.
--- NOTE | 2021-09-26 22:59 | NUR ---
CHAO AWAKENS FROM A "NIGHTMARE" HAVING A COUGHING FIT, SATS DROP TO LO 80S, BOOSTED TO 100%. HE IS VISIBLY SHAKEN, ASKS FOR MEDS, PHARMACY CALLED FOR LIQUID ATIVAN, PRECEDEX RESTARTED AT 0.2 PER PATIENT WISHES. ICE CHIPS GIVEN. WILL CONTINUE TO MONITOR.
[2021-09-27 05:07] LABS: BASOPHILS ABSOLUTE AUTO 0.01 K/mm3 (0.00-0.23); BASOPHILS PERCENT AUTO 0 % (0-2); EOSINOPHILS ABSOLUTE AUTO 0.03 K/mm3 (0.00-0.68); EOSINOPHILS PERCENT AUTO 1 % (0-6); Hematocrit 27.7 % (37.0-53.0); IMMATURE GRAN ABSOLUTE AUTO 0.17 K/mm3 (0.00-0.10); IMMATURE GRAN PERCENT AUTO 3 % (0-1); LYMPHOCYTES PERCENT AUTO 7 % (21-46); MONOCYTES ABSOLUTE AUTO 0.21 K/mm3 (0.16-1.47); MONOCYTES PERCENT AUTO 4 % (4-13); Mean Corpuscular HGB Conc 32.5 g/dL (31.5-36.5); Mean Corpuscular Volume 89 fL (80-100); Mean Platelet Volume 8.9 fL (9.1-12.4); NEUTROPHILS ABSOLUTE AUTO 4.91 K/mm3 (1.96-9.15); NEUTROPHILS PERCENT AUTO 86 % (41-73); NRBC ABSOLUTE 0.09 K/mm3 (0.00-0.02); NRBC Auto 1.6 /100 WBC (0.0-0.2); Platelet Count 316 K/mm3 (150-400); RDW Coefficient Variation 15.8 % (11.7-14.2); White Blood Cell Count 5.73 K/mm3 (4.00-11.30)
[2021-09-27 05:38] LABS: Bun/Creatinine Ratio 42.8 (12.0-20.0); Calcium, Blood 8.7 mg/dL (8.5-10.1); Creatinine, Blood 0.49 mg/dL (0.60-1.20); Potassium, Blood 4.3 mmol/L (3.5-5.5)
--- NOTE | 2021-09-27 05:50 | NUR ---
CHAO HAS BEEN AWAKEN SINCE HIS EARLIER "NIGHTMARE". HE HAS HAD A COUPLE OF FITS OF COUGHING AND HAS DROPPED HIS SATS TO THE MID 80S. WITH A BOOST OF 100% FI02 HE RECOVERS WELL. HE WAS INCREASED TO 80% ON HIS AIRVO BY R/T AT THEIR 0330 ROUNDS. HE CONTINUES TO BE CONSISTENT AROUND 93-94%. HE MENTIONED THAT GOING WITHOUT FOOD SEEMED TO BE "OK" FOR HIM. THE BIT OF ICE CHIPS WERE ABLE TO "TIDE HIM OVER". HE CONTINUES ON LOW DOSE PRECEDEX @ 0.2 SINCE THE "NIGHTMARE". HIS ONE ATTEMPT AT USING THE BEDPAN THIS SHIFT RESULTED IN A PARTIAL LINEN CHANGE. HIS ONE DOSE OF LIQUID ATIVAN SEEMED TO DISORIENT HIM FOR A BRIEF AMOUNT OF TIME, HE HAD TAKEN OFF HIS AIRVO AND WAS TALKING A BIT OF NONSENSE, BUT THAT HAS CLEARED. WILL CONTINUE TO MONITOR AND TREAT, AWAITING NEXT SHIFT.
--- NOTE | 2021-09-27 08:53 | NUR ---
ASSUMED CARE THIS AM PT. ALERT AND ORIENTED, ABLE TO REPSITION SELF IN BED FOR COMFORT AT THIS TIME. PT DENIES PAIN THIS AM, REPORTS NIGHTMARES LAST NIGHT. PT. REMAINS ON AIRVO THIS AM, SETTINGS 55L, 75%.VSS AT THIS TIME. CALL LIGHT IN REACH.
--- NOTE | 2021-09-27 10:10 | NUR ---
ASSISTED PT WITH BED HAINES AND URINAL. DYSPNEA WITH EXCERTION. SPO2 DECREASING TO 82-84%, FIO2 TITRATED UP TO 100% FROM 80% FOR RECOVERY. PT SLOWLY INCREASING, WILL TITRATE O2 DOWN PT TOLERATES.
--- NOTE | 2021-09-27 13:35 | NUR ---
ROUNDED ON PT. PT. RESTING COMFORTABLY IN BED, PT AT BEDSIDE. ABLE TO REPOSITION SELF FOR COMFORT NEEDED. VSS.
--- NOTE | 2021-09-27 17:00 | NUR ---
SHIFT SUMMARY PT. REMAINS ALERT AND ORIENTED T/O SHIFT. SLEEPING MOST OF THE DAY. ABLE TO REPOSITION SELF IN BED. DOES BECOME VERY SOB WITH ACTIVITY. REMAINS ON PRECEDEX GTT FOR ANXIETY AT 02 MCG/KG/MIN. PT. AWAKENS EASILY TO VERBAL STIMULI. CLEARED BY SPEECH THERAPY THIS AM FOR MEDS IN APPLESAUCE. VSS T/O SHIFT. CALL LIGHT IN REACH. REPORT TO ONCOMING KHANG
--- NOTE | 2021-09-27 21:05 | NUR ---
ASSUMED CARE AT 1900, PT SLEEPING QUIETLY WITHOUT ANY EVIDENCE OF DISTRESS. PRECEDEX @ 0.2 AND NS @ TKO. AIRVO 55L/80%, SATS94%. AWAKENS TO VOICE, ANSWERS APPROPRIATELY, DENIES ANY NEEDS AT THIS TIME.
[2021-09-28 04:21] LABS: Hematocrit 27.3 % (37.0-53.0); Mean Corpuscular HGB 29.6 pg (26.0-34.0); Mean Corpuscular Volume 90 fL (80-100); Mean Platelet Volume 8.7 fL (9.1-12.4); NRBC ABSOLUTE 0.11 K/mm3 (0.00-0.02); Platelet Count 289 K/mm3 (150-400); RDW Coefficient Variation 16.1 % (11.7-14.2); RDW Standard Deviation 51.1 fL (35.1-46.3); Red Blood Cell Count 3.04 M/mm3 (4.30-5.90); White Blood Cell Count 5.59 K/mm3 (4.00-11.30)
[2021-09-28 04:50] LABS: Bun/Creatinine Ratio 47.7 (12.0-20.0); Calcium, Blood 8.6 mg/dL (8.5-10.1); Creatinine, Blood 0.52 mg/dL (0.60-1.20); Potassium, Blood 4.1 mmol/L (3.5-5.5)
--- NOTE | 2021-09-28 05:59 | NUR ---
IRINA AWAKENED TO USE THE URINAL, 100% BOOST GIVEN, THOUGHT HE MIGHT BE ABLE TO SIT ON THE EDGE OF THE BED, SAT FOR <20 SECONDS, BEGAN A COUGHING FIT. SATS TO MID 60'S, TAKING A SIGNIFICANT AMOUNT OF TIME TO RECOVER, SEVERAL BOOSTS OF 100%, FIO2 ON AIRVO INCREASED TO 85% TO AID IN RECOVERY.
--- NOTE | 2021-09-28 06:45 | NUR ---
WHILE IRINA WAS TRYING TO RECOVER, RADIOLOGY CAME TO PERFORM THE AM CXR, THIS CAUSED THE PATIENT TO START COUGHING AGAIN AND HAVING A DROP IN HIS SATS. OPTED TO HOLD THE AM PRILOSEC HE WAS HAVING SUCH A DIFFICULT TIME WITH RECOVERY. WHEN RESTING HE DOES JUST FINE, WITH ANY DISRUPTION HE BEGINS HIS COUGHING "FITS". DRY, NON PRODUCTIVE. SATS CURRENTLY 92% ON 85% AND 55L. RESTING IN BED. CONTINUE TO MONITOR AND REPORT OFF TO NEXT SHIFT WHEN ABLE.
--- NOTE | 2021-09-28 07:32 | NUR ---
ASSUMED CARE THIS AM PT. ON AIRVO AT 55L, 85% THIS AM. PT. ALERT AND ORIENTED. REPORTS FREQUENT NIGHTMARES T/O THE NIGHT CAUSING HIM TO FEEL ANXIOUS. PT LS DIM T/O. PT. ABLE TO REPOSITON SELF IN BED FOR COMFORT; HOWEVER BECOMES VERY SOB WITH ACTIVITY AND TAKES ABOUT 10-15MIN TO RECOVER. PT. REQUESTING LINEN CHANGE THIS AM, ADDTIONAL STAFF USED TO REDUCE WORK LOAD ON PT. PT. PLACED ON BIPAP 16/7, 85% FOR REPOSITIONING. AFTER LINEN CHANGED PT SAT UP IN HIGH FOWLERS, ON BIPAP, SPO2 91%, PT REPORTS "I CANT CATCH MY BREATHE". AFTER APPROX 5 MIN PT WORK OF BREATHING DECREASED AND ANXIETY DECREASED WELL. PT. TO BE SWITCHED BACK TO AIRVO. PRECEDEX GTT REMAINS ON AT 02MCG/KG/MIN. CALL LIGHT IN REACH.
--- NOTE | 2021-09-28 08:30 | NUR ---
PRECEDEX PLACED ON STAND BY AT THIS TIME.
--- NOTE | 2021-09-28 13:30 | NUR ---
UPDATE THIS AFTERNOON PT REPORTS FEELING THOUGH HIS BREATHING HAS GOTTEN EASIER. PT. ABLE TO ASSIST WITH TURN THIS AFTERNOON WITH OUT GETTING SOB OR NEEDING RECOVERY TIME. ASSISTED PT WITH URINAL. PT. ALSO ABLE TO TALK IN FULL SENTENCES AT THIS TIME WHICH HE STRUGGLED TO DO YESTERDAY AND THIS AM. PT. AT BEDSIDE. PT. PROVIDED WITH 'MAGIC CUP" SNACK PER DR. BRUNER AND A NURSE NOTIFY PLACED FOR ONE TO BE OFFERED THREE TIMES PER DAY. PT REMAINS ON AIRVO AT THIS TIME 55L, 85%. CALL LIGHT IN REACH.
--- NOTE | 2021-09-28 17:22 | NUR ---
SHIFT SUMMARY PT. REPORTS HIS WOB IS BETTER THIS PM. TOLERATING MORE ACTIVITY THIS AFTERNOON. AIRVO CURRENTLY AT 55L, 80%. VSS T/O SHIFT. PRECEDEX ON SB T/O SHIFT. CALL LIGHT IN REACH, REPORT TO ONCOMING RN.
--- NOTE | 2021-09-28 23:19 | NUR ---
CARE ASSUMPTION: RECEIVED REPORT FROM KHANG HERNANDEZ. ASSUMED CARE AT 2255.
--- NOTE | 2021-09-29 01:21 | NUR ---
PRECEDEX PUT IN STANDBY AT THIS TIME.
[2021-09-29 03:34] LABS: Hematocrit 27.2 % (37.0-53.0); Hemoglobin 8.8 g/dL (13.5-17.5); Mean Corpuscular HGB 29.3 pg (26.0-34.0); Mean Corpuscular HGB Conc 32.4 g/dL (31.5-36.5); Mean Corpuscular Volume 91 fL (80-100); Mean Platelet Volume 8.8 fL (9.1-12.4); NRBC ABSOLUTE 0.06 K/mm3 (0.00-0.02); Platelet Count 300 K/mm3 (150-400); RDW Coefficient Variation 16.3 % (11.7-14.2); RDW Standard Deviation 52.4 fL (35.1-46.3); White Blood Cell Count 6.29 K/mm3 (4.00-11.30)
[2021-09-29 04:09] LABS: Albumin, Blood 2.4 g/dL (3.4-5.0); Albumin/Globulin Ratio 0.7 (0.8-1.8); Bilirubin, Total 0.6 mg/dL (0.1-1.0); Bun/Creatinine Ratio 44.8 (12.0-20.0); Calcium, Blood 8.6 mg/dL (8.5-10.1); Creatinine, Blood 0.58 mg/dL (0.60-1.20); Globulin, Blood 3.6 g/dL (2.2-4.0)
--- NOTE | 2021-09-29 05:29 | NUR ---
SHIFT SUMMARY: PATIENT DENIES PAIN, REPORTS SOB ONLY AFTER A COUGHING SPELL. PATIENT DESATS WHEN COUGHING AND TAKES AWHILE TO RECOVER. VSS T/O SHIFT. PATIENT IS PLEASANT AND COOPERATIVE WITH CARE. SUCESSFULLY TAKES PILLS WITH APPLESAUCE, OTHERWISE IS SIPS AND CHIPS/NPO. NS RUNNING KVO, MEDICATED PER EMAR. NO ADVERSE EVENTS THIS SHIFT. WILL CONTINUE TO MONITOR AND REPORT TO ONCOMING RN.
--- NOTE | 2021-09-29 08:11 | NUR ---
ASSUMPTION OF CARE RECEIVED REPORT FROM TERESA QUIÑONEZ AT 0715. ASSUMED CARE OF PATIENT. PATIENT SITTING UP IN BED, A/O. DENIED PAIN OR OTHER DISCOMFORTS. AIRVO IN PLACE 60L/70%, SATS ABOVE 90%. PRECEDEX INFUSING AT 0.2MCG/KG FOR ANXIETY. DISCUSSED PLAN OF CARE TO STILL TRANSFER TO [facility] WHEN BED AVAILABLE. PATIENT VERBALIZED UNDERSTANDING. REVIEWED ORDERS AND WILL TREAT PRESCRIBED.
--- NOTE | 2021-09-29 17:53 | NUR ---
SHIFT SUMMARY PATIENT A/O, PRECEDEX INFUSING AT START OF SHIFT TURNED AFF CHARTED. NO PRN ANXIETY MEDICATIONS REQUIRED. SPEECH THERAPY EVALUATED AND PATIENT TO REMAIN NPO UNTIL FURTHER TEST CAN BE COMPLETED TOMORROW. ICE CHIPS PROVIDED AND APPLESAUCE UTILIZED WITH PILLS. AIRVO IN PLACE AT 60L/70% FIO2, SP02 ABOVE 90%. PATIENT WITH URINE OUTPUT AT START OF SHIFT WHICH LEAD INTO A PANICK ATTACK. PATIENT DECLINING THE NEED TO URINATE THROUGH SHIFT, NOTIFIED DR. PASCUAL OF URINE OUTPUT AND REQUESTED INCREASED HYDRATION DUE TO NPO. NO ORDERS AT THAT TIME. UPON EVENING ROUNDS PATIENT ON PHONE AND BEGAN TO HAVE ANOTHER PANICK ATTACK. INCREASED FIO2 TO 100% AFTER PATIENT DESAT TO 70'S, PATIENT WITH VERY SLOW RECOVERY. XANAX AND COUGH MEDICINE GIVEN. PATIENT TRYING TO EXPLAIN A PHONE CALL HE RECEIVED FROM DR. CANO. UNABLE TO COMMUNICATE DETAILS. RETURNED TO ROOM. WILL CONTINUE TO MONITOR OXYGEN AND URINE OUTPUT. WILL GIVE REPORT TO ONCOMING RN.
--- NOTE | 2021-09-29 19:30 | NUR ---
PATIENT RESTING QUIETLY IN BED WITH AT BEDSIDE. A&O X3. DRY NONPRODUCTIVE COUGH WITH CONVERSATION. AIRVO 60L FIO2 70% IN PLACE. SOB WITH SLIGHT ACTIVITY. BUT CONTINUES TO BE ABLE TO REPOSITION SELF NEEDED FOR COMFORT.
--- NOTE | 2021-09-29 22:26 | NUR ---
PATIENT NICANOR PO MEDICATIONS WITHOUT DIFFICULTY. AIRVO REMAINS IN PLACE CHANGED TO 60L AND FIO2 50%. PATIENT AGREES TO CALL IF HE STARTS TO FEEL ANXIOUS, TO HELP CATCH IT EARLY FOR HIM. PATIENTS REMAINS AT BEDSIDE PROVIDING GOOD SUPPORT.
--- NOTE | 2021-09-30 00:25 | NUR ---
AT 2330 PATIENT WOKE UP WITH DRY COUGH, AND ANXIETY DUE TO UNCONTROLLED COUGH. PRN PHENERGAN/CODINE COUGH SYRUP GIVEN AND FIO2 INCREASED TO 100% UNTIL RECOVERY NOW FIO2 TITRATED DOWN TO 60% AND PATIENT BACK TO SLEEPING. PATIENTS HOME FOR THE NIGHT, AGREE TO CALL HER IF NEEDED DUE TO ANXIETY
--- NOTE | 2021-09-30 06:12 | NUR ---
SUMMARY PATIENT SLEEPING OFF AND ON T/O NIGHT WITH AIRVO IN PLACE. CONTINUE TO DESAT VERY EASILY. ABLE TO HEAD OFF PANIC ATTACK BY INCREASING FIO2 TO 100% UNTIL PATIENT IS RECOVERED. PATIENT VERBALIZED THAT HE FEELS RESTED THIS MORNING.
--- NOTE | 2021-09-30 12:08 | NUR ---
REASSESSMENT PT HAS DONE WELL ON THE HIGH FLOW NC TODAY. HE STARTED TO HAVE A COUGHING FIT THIS AM, BUT WITH A QUICK INCREASE TO 100% FIO2 FOR 4 MINUTES PT WAS ABLE TO TOELRATE IT WITHOUT A PANIC ATTACK. HE ALSO TOLERATED HIS BARIUM SWALLOW WELL. PO XANAX GIVEN 45 MINUTES PRIOR AND PT DID NOT HAVE ANY PANIC ATTACKS OR DESATURATIONS DURING THE TEST. HE REMAINS ALERT AND ORIENTED. LUNGS ARE CLEAR. SPORADIC DRY COUGH WITH OCCASIONAL COUGHING FITS. SR, BP STABLE. PT'S HAS BEEN AT THE BEDSIDE FOR MOST OF THE MORNING. WAITING FOR SPEECH THERAPY'S ORDERS BASED OFF OF BARIUM SWALLOW. CONTINUING TO MONITOR.
--- NOTE | 2021-09-30 17:14 | NUR ---
SHIFT SUMMARY PT REMAINED ON THE AIR VO TODAY BUT WAS ABLE TO HAVE HIS OXYGEN TITRATED DOWN TO 50%. HIS LUNGS REMAIN CLEAR AND HE STILL HAS A DRY COUGH BUT HIS STATES THAT HE HAS BEEN COUGHING LESS TODAY. NO PANIC ATTACKS SO FAR TODAY. REMAINS SR, BP STABLE. PT HAD BARIUM SWALLOW AND NEW DIET RESTRICTIONS WERE REVIEWED WITH HIM BY SPEECH THERAPY. NO VOID YET TODAY BUT PT STATES IT IS NORMAL FOR HIM TO ONLY VOID 1 OR 2 TIMES A DAY. NO OTHER REQUESTS AT THIS TIME.
--- NOTE | 2021-09-30 20:00 | NUR ---
PATIENT AWAKE NICANOR DINNER WELL. CONTINUES SOB WITH ACTIVITY. AIRVO IN PLACE 50L 50% FIO2. DRY COUGH AT TIMES. PATIENT ASSISTED WITH BEDPAN. FIO2 INCREASED TO 100% DURING POSITIONING ON BEDPAN AND WHILE PATIENT HAVING BM THEN TITRATED BACK DOWN NICANOR BY PATIENT TO FIO2 50%. THIS HELPED MAINTAIN OXYGEN SAT ABOVE 90% AND HELPED THE FEELING OF SOB BY PATIENT. PATIENT VERBALIZED FEELING ANXIOUS BEFORE BEDPAN AND XANAX GIVEN. PATIENTS HOME FOR THE NIGHT.
[2021-10-01 05:09] LABS: Hematocrit 24.8 % (37.0-53.0); Hemoglobin 7.9 g/dL (13.5-17.5); Mean Corpuscular HGB Conc 31.9 g/dL (31.5-36.5); Mean Corpuscular Volume 91 fL (80-100); Mean Platelet Volume 8.5 fL (9.1-12.4); NRBC ABSOLUTE 0.05 K/mm3 (0.00-0.02); NRBC Auto 0.9 /100 WBC (0.0-0.2); Platelet Count 240 K/mm3 (150-400); RDW Coefficient Variation 16.4 % (11.7-14.2); RDW Standard Deviation 53.3 fL (35.1-46.3); Red Blood Cell Count 2.72 M/mm3 (4.30-5.90); White Blood Cell Count 5.52 K/mm3 (4.00-11.30)
[2021-10-01 05:30] LABS: Albumin/Globulin Ratio 0.6 (0.8-1.8); Bilirubin, Total 0.4 mg/dL (0.1-1.0); Bun/Creatinine Ratio 37.4 (12.0-20.0); Calcium, Blood 8.2 mg/dL (8.5-10.1); Creatinine, Blood 0.45 mg/dL (0.60-1.20); Globulin, Blood 3.3 g/dL (2.2-4.0); Potassium, Blood 3.5 mmol/L (3.5-5.5); Total Protein, Blood 5.3 g/dL (6.4-8.2)
--- NOTE | 2021-10-01 06:37 | NUR ---
SUMMARY PATIENT SLEEPING OFF AND ON T/O NIGHT. AIRVO IN PLACE 50L FIO2 TITRATED T/O NIGHT NOW AT 50%. DRY NONPRODUCTIVE COUGH OCCASIONALLY PATIENT NOT REQUIRING ANY PRN COUGH SYRUP DURING THE NIGHT.
--- NOTE | 2021-10-01 13:53 | NUR ---
Spiritual Care Visit Pt. is awake in bed, and welcomes my visit. Spouse is present. Pt. has no visible signs of distress and is pleasant. Establish rapport and facilitate a life review. Pt. displays eveidenceo of both peace and zachariah. Explore issues of iraj and belief. Pt. verbalizes gratitude for the spiritual care visit, and invites this square cutter to return.
--- NOTE | 2021-10-01 17:09 | NUR ---
SHIFT SUMMARY NO ACUTE CHANGES THIS SHIFT. PT HAS REMAINED ALERT AND ORIENTED WHEN AWAKE. PT ANSWERS QUESTIONS APPROPRIATELY AND FOLLOWS DIRECTIONS WELL. PT MOVES ALL EXTREMITIES AND REPOSITIONS SELF IN BED FOR COMFORT. PT REMAINS ON HIFLOW NC AT 50L, FIO2 TITRATED DOWN TO 40%. PT WITH PERIODS OF DESATURATING WITH COUGHING FITS. VITAL SIGNS HAVE REMAINED STABLE. POWERGLIDE TO JAQUELIN C/D/I. NS INFUSING TKO. PT USING URINAL TO VOID INDEPENDENTLY. PT SPOUSE AT BEDSIDE THIS AFTERNOON. WILL CONTINUE TO MONITOR AND REPORT OFF TO ONCOMING RN.
--- NOTE | 2021-10-01 19:10 | NUR ---
ASSUMPTION OF CARE PT RESTING IN BED, WATCHING TV AND TEXTING. HE IS ON AIRVO 50L/60%. HE DENIES SOB OR CP. PT VERY PLEASANT AFFECT, PARTICIPATES IN CONVERSATION. VSS AT THIS TIME. SEE SHIFT ASSESSMENT.
--- NOTE | 2021-10-01 22:30 | NUR ---
UPDATE PT WAKENS TO VERBAL STIMULI, REMAINS ALERT AND ORIENTED. HE HAS MOSTLY SLEPT THROUGH THE NIGHT. WAKENS WITH COUGHING FITS AND DESATS DOWN TO THE 70S. SLOW TO RECOVER BUT DOES INCREASE TO >92%. HE C/O MILD ANXIETY NEAR THE BEGINNING OF SHIFT AND DENIES IT NOW. VSS. CALL LIGHT WITHIN REACH.
[2021-10-02 05:05] LABS: Hematocrit 27.7 % (37.0-53.0); Hemoglobin 9.1 g/dL (13.5-17.5); Mean Corpuscular HGB 29.7 pg (26.0-34.0); Mean Corpuscular HGB Conc 32.9 g/dL (31.5-36.5); Mean Corpuscular Volume 91 fL (80-100); Mean Platelet Volume 8.7 fL (9.1-12.4); NRBC ABSOLUTE 0.04 K/mm3 (0.00-0.02); NRBC Auto 0.5 /100 WBC (0.0-0.2); Platelet Count 280 K/mm3 (150-400); RDW Coefficient Variation 16.6 % (11.7-14.2); RDW Standard Deviation 53.7 fL (35.1-46.3); Red Blood Cell Count 3.06 M/mm3 (4.30-5.90); White Blood Cell Count 7.51 K/mm3 (4.00-11.30)
[2021-10-02 05:28] LABS: Albumin, Blood 2.2 g/dL (3.4-5.0); Albumin/Globulin Ratio 0.6 (0.8-1.8); Bilirubin, Total 0.5 mg/dL (0.1-1.0); Bun/Creatinine Ratio 30.5 (12.0-20.0); Calcium, Blood 8.5 mg/dL (8.5-10.1); Creatinine, Blood 0.46 mg/dL (0.60-1.20); Globulin, Blood 3.6 g/dL (2.2-4.0); Potassium, Blood 3.6 mmol/L (3.5-5.5); Total Protein, Blood 5.8 g/dL (6.4-8.2)
--- NOTE | 2021-10-02 06:02 | NUR ---
SHIFT SUMMARY PT HAS SLEPT THROUGH MOST OF NIGHT. HE IS ON AIRVO 50L WITH FIO2 70%. HE HAD MULTIPLE COUGHING EPISODES THAT WOULD CAUSE HIM TO DESAT INTO 70S-80S AND HE RECOVERED SLOWLY. CURRENT SPO2 95%. NO ACUTE EVENTS OVERNIGHT. PT MILDLY ANXIOUS AT BEGINNING OF SHIFT BUT HAS BEEN CALM SINCE. WILL REPORT TO ONCOMING RN.
--- NOTE | 2021-10-02 14:39 | NUR ---
PT ARRIVED TO ROOM [id number] WITH ALL BELONGINGS FROM ICU. PT A&0X4, APPROPRIATE, ABLE TO DEMONSTRATE USE OF CALL LIGHT, ORIENTED TO ROOM AND UNIT ROUTINES. PT STATES HE HAS NO NEEDS AT THIS TIME. CALL LIGHT AND PERSONAL BELONGINGS IN REACH. CONTINUOUS SPO2 AND SOILS TECHNICIAN IN PLACE. WILL CONTINUE TO MONITOR.
--- NOTE | 2021-10-02 15:50 | NUR ---
Spiritual Care Visit. Pt. had longnlty been moved to PCU from ICU. Pt. is pleasant, sitting up in bed, and welcomes my visit. Pt. displays evidence of confidence and a positive attiude. Pt. verbalizes his motivation to recover. Listen theraputically and continue to build rapport. Pt. displays evidence of trust and vebralizes gratitude for the spiritual care visit.
--- NOTE | 2021-10-02 17:32 | NUR ---
NO ACUTE CHANGES SINCE PT ARRIVED TO PCU FROM ICU. PT IS COMPLAINING OF HUNGER AND IS UNHAPPY ABOUT BEING NPO AT THIS TIME. MESSAGE LEFT WITH DR PASCUAL REGARDING THIS. EXPLAINED TO PT AND HIS THE HIGH RISK OF ASPIRATION AND WORSENING PT'S CONDITION IF HE WAS TO EAT. THEY VERBALIZE UNDERSTANDING. WILL CONTINUE TO MONITOR AND GIVE REPORT TO NOC SHIFT RN. CALL LIGHT IN REACH.
[2021-10-03 03:57] LABS: Hematocrit 25.6 % (37.0-53.0); Hemoglobin 8.3 g/dL (13.5-17.5); Mean Corpuscular HGB 29.2 pg (26.0-34.0); Mean Corpuscular HGB Conc 32.4 g/dL (31.5-36.5); Mean Corpuscular Volume 90 fL (80-100); Mean Platelet Volume 8.7 fL (9.1-12.4); NRBC ABSOLUTE 0.04 K/mm3 (0.00-0.02); NRBC Auto 0.5 /100 WBC (0.0-0.2); Platelet Count 273 K/mm3 (150-400); RDW Coefficient Variation 16.4 % (11.7-14.2); RDW Standard Deviation 53.5 fL (35.1-46.3); Red Blood Cell Count 2.84 M/mm3 (4.30-5.90); White Blood Cell Count 7.89 K/mm3 (4.00-11.30)
[2021-10-03 04:18] LABS: Albumin, Blood 2.2 g/dL (3.4-5.0); Albumin/Globulin Ratio 0.6 (0.8-1.8); Bilirubin, Total 0.6 mg/dL (0.1-1.0); Bun/Creatinine Ratio 36.5 (12.0-20.0); Calcium, Blood 8.6 mg/dL (8.5-10.1); Creatinine, Blood 0.44 mg/dL (0.60-1.20); Globulin, Blood 3.5 g/dL (2.2-4.0); Phosphorus, Blood 2.5 mg/dL (2.5-4.9); Potassium, Blood 3.4 mmol/L (3.5-5.5); Total Protein, Blood 5.7 g/dL (6.4-8.2)
--- NOTE | 2021-10-03 05:16 | NUR ---
TERRESTRIAL ECOLOGIST SUMMARY PT IS ALERT AND COMMUNICATING APPROPRIATELY. PT HAS MAINTAINED O2 SATS >90% ON AIRVO 50L AND 65% FIO2 FOR MOST OF THE NIGHT EXCEPT FOR A COUPLE OF COUGHING FITS THAT CAUSED HIS O2 SATS TO DROP TO THE LOW 80'S REQUIRING ADDITIONAL FIO2 TO RECOVER. BP WNL AND STABLE. TELE SHOWING SR 70-80'S EXCEPT DURING COUGHING FITS WHEN HIS HR WILL RISE TO THE 100'S.PT AFEBRILE THIS SHIFT DESPITE REPORTING THAT HE HAS FELT OVERHEATED FOR MUCH OF THE NIGHT. PROVIDER CONTACTED THIS SHIFT FOR IV PAIN & ANXIETY MEDS DUE TO STRICT NPO STATUS. PT ABLE TO REST COMFORTABLY FOR MAJORITY OF THE SHIFT. WILL REPORT TO ONCOMING RN.
--- NOTE | 2021-10-03 10:02 | NUR ---
CARE ASSUMPTION THIS RN ASSUMED FROM ESVIN QUIÑONEZ AT 0700. VSS. TELE SR 70S. PATIENT IS ALERT AND OREINTED X4. PERRLA. PATIENT NEURO IS INTACT. PATIENT REPORTS NO CHEST PAIN/PRESSURE. NO EDEMA NOTED. STRONG RADIAL AND FAINT PEDIS. PATIENT LUNG SOUNDS CLEAR BILATERAL UPPER AND DIM LOWER. AIRVO 50 50%. SPO2 >90%. NO SHORTNESS OF BREATH. PATIENT ABD SOFT NONTENDER AND HYPOACTIVE. SKIN IS CLEAN DRY AND INTACT. PATIENT REPORTS PAIN RATED AT 2 ON A SCALE OF 0-10, 10 BEING THE WORST PAIN. PATIENT RECEIVED IV PAIN MEDICATION. SEE SHIFT ASSESSMENT FOR FURTHER DETAILS. PATIENT WAS COMPLAINING OF ANXIETY THIS MORNING AND RECEIVED IV ATIVAN WHICH HELPED EASE THE PATIENTS ANXIETY. PATIENT AGREED TO A BED BATH AND LINEN CHANGE TODAY. PLAN IS FOR PATIENT TO HAVE PEG TUBE POSSIBLY PLACED. PATIENT ON STRICT NPO STATUS. ORAL CARE BEING DONE EVERY FOUR HOURS. PATIENT AND PATIENT WANT PATIENT TO BE TRANSFERED TO [facility] IN [place], BUT THERE ARE NO BEDS AVAILABLE AT THIS TIME. MD HAQUE MADE AWARE OF THIS. CALL LIGHT WITHIN REACH AND BED IN LOWEST POSITION. WILL CONTINUE TO MONITOR AND PROVIDE CARE.
[2021-10-03 10:09] LABS: IMMUNOGLOBULIN A, QN, SERUM 192 mg/dL (61-437); IMMUNOGLOBULIN G, QN, SERUM 767 mg/dL (603-1613); IMMUNOGLOBULIN M, QN, SERUM 49 mg/dL (20-172)
--- NOTE | 2021-10-03 10:59 | NUR ---
UPDATE ATUL WITH SPEECH IN TO SEE PATIENT. WHILE ATUL WITH SPEECH WAS IN THERE PATIENT BEGAN TO HAVE ANXIETY ATTACK AND DROP IN OXYGEN TO 83%. THIS RN HIT THE 100% BOTTOM ON AIRVO AND ENCOURAGED THE PATIENT TO RELAX AND TAKE CONTROLLED BREATHS. PATIENT SPO2 IMPROVED TO 88%-90%. PATIENT AT BEDSIDE. PATIENT STATED HIS AT TIMES CAN INCREASE HIS ANXIETY AND WHEN HE GETS A LOT OF INFORMATION AT ONCE. THIS RN NOTIFED MD HAQUE OF PATIENTS ANXIETY ATTACK AND SWITCHED HIS ATIVAN ORDER FOR Q4 PRN. ATUL FINISHED HER ASSESSMENT/EVAL WITH THE PATIENT AND STATED FOR PATIENT TO REMAIN STRICT NPO. MD HAQUE IN ROOM AND DISCUSSED PEG PLACEMENT AND IS GOING TO BE IN CONTACT WITH CONSULT FOR IT. CALL LIGHT WITHIN REACH. WILL CONTINUE TO MONITOR AND PROVIDE CARE.
--- NOTE | 2021-10-03 11:39 | NUR ---
Yesterday on 10/02 at approximately 1500, I met with pt's July. She reports feeling overwhelmed and frustrated at what she describes as a lack of coordination between teams. 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 He was initially treated with radiation via Oncology at [facility]. However, the patient was then hospitalized here at [facility] for pneumonia. CT PE study showed pt also suffering from bronchiectasis. He was discharged, but returned 3 days later with worsening hypoxia and ended up being transferred to ICU, and placed on intermittent BIPAP. His status has improved, and he is now in PCU on 50L and 50% FI02. The patient also failed swallow study, and ST unsure if this is in part due to the high flow of oxygen forcing food and fluids into airway, or if he truly has decreased swallow ability. Pt is scheduled for PEG tube placement for nutrition. According to the most recent note from Dr. Snell, pt is still being considered for return to [facility] for cancer treatment once pt's condition is stable enough to tolerate further cancer treatment.
--- NOTE | 2021-10-03 17:48 | NUR ---
SHIFT SUMMARY PATIENT NEURO REMAINS INTACT. PATIENT HAS BEEN ANXIOUS OFF AND ON. PATIENT BECOMES MORE ANXIOUS WHEN IS AT BEDSIDE. PATIENT BECOMES ANXIOUS FROM FAMILY MEMBERS CALLING HIS AND ASKING MULTIPLE QUESTIONS. THIS RN INFOMRED THE THAT IF SHE OR FAMILY MEMBERS HAVE ADDITIONAL QUESTIONS TO ASK THEM OUTSIDE OF THE ROOM, SO IT DOESN'T INCREASE THE PATIENT ANXIETY. VSS. SPO2 >90% ON 45L 50%. PATIENT HAS SLEPT OFF AND ON THIS AFTERNOON. PATIENT REMAINS NPO. PATIENT WILL HAVE A PEG TUBE PLACEMENT TOMORROW. DO NOT GIVE LOVENOX IN THE AM, PER MD NURSE NOTIFICATION. PATIENT HAS BEEN REPOSITIONED PATIENT ALLOWED DURING THE DAY. PATIENT REFUSED THIS RN MOST RECENT OFFER TO DO ORAL CARE. NO ACUTE CHANGES THIS SHIFT. LINEN CHANGE AND BED BATH DONE TODAY. CALL LIGHT WITHIN REACH AND BED IN LOWEST POSITION. WILL CONITNUE TO MONITOR AND PROVIDE CARE UNTIL HAND OFF WITH NEXT SHIFT.
[2021-10-04 04:02] LABS: Hematocrit 25.5 % (37.0-53.0); Hemoglobin 8.4 g/dL (13.5-17.5); Mean Corpuscular HGB 29.5 pg (26.0-34.0); Mean Corpuscular HGB Conc 32.9 g/dL (31.5-36.5); Mean Corpuscular Volume 90 fL (80-100); NRBC ABSOLUTE 0.03 K/mm3 (0.00-0.02); NRBC Auto 0.3 /100 WBC (0.0-0.2); Platelet Count 287 K/mm3 (150-400); RDW Coefficient Variation 16.5 % (11.7-14.2); RDW Standard Deviation 53.2 fL (35.1-46.3); Red Blood Cell Count 2.85 M/mm3 (4.30-5.90); White Blood Cell Count 8.92 K/mm3 (4.00-11.30)
[2021-10-04 04:22] LABS: Albumin/Globulin Ratio 0.5 (0.8-1.8); Bilirubin, Total 1.1 mg/dL (0.1-1.0); Bun/Creatinine Ratio 30.8 (12.0-20.0); Calcium, Blood 8.3 mg/dL (8.5-10.1); Creatinine, Blood 0.42 mg/dL (0.60-1.20); Globulin, Blood 3.7 g/dL (2.2-4.0); Potassium, Blood 3.6 mmol/L (3.5-5.5); Total Protein, Blood 5.7 g/dL (6.4-8.2)
--- NOTE | 2021-10-04 05:32 | NUR ---
SHIFT SUMMARY PATIENT ALERT AND ORIENTED x2-3. VSS. PATIENT ON AIRVO 40L/50% FIO2 WITH O2 SAT LOW TO MID 90s. PATIENT FREQUENTLY REMOVING AIRVO FROM NOSE AND WILL DESAT INTO MID 60s AND WILL HAVE COLOR CHANGE IN HIS FACE. PATIENT ABLE TO RECOVER WITHIN 2 MINUTES WHEN FIO2 INCREASED TO 100%. PATIENT EDUCATED MULTIPLE TIMES ABOUT KEEPING AIRVO IN HIS NOSE, PATIENT STATES "I KNOW, I'M TRYING". MEDICATED PER EMAR FOR ANXIETY. DENIES CHEST PAIN. PATIENT USING URINAL INDEPENDENTLY AT BEDSIDE. ABLE TO TURN SELF IN BED. NO OTHER SIGNIFICANT CHANGES THIS SHIFT, WILL REPORT TO DAY SHIFT RN.
--- NOTE | 2021-10-04 08:00 | NUR ---
INITIAL ASSESSMENT PATIENT SLEEPING UPON ENTERING ROOM. LETHARGIC. SLEEPS IN BETWEEN NURSE QUESTIONS. PATIENT ORIENTED TO SELF, AND FOLLOWING COMMANDS. STATES THAT PATIENT HAS BEEN CONFUSED SINCE RECEIVING ATIVAN ON A PREVIOUS SHIFT. PATIENT SLOW TO RESPOND. PATIENT WEAK BUT ABLE TO ASSIST WITH REPOSITIONING AND IS FREQUENTLY SHIFTING HIPS IN BED INDEPENDENTLY. PATIENT AFEBRILE. PATIENT DENIES PAIN. PATIENT SATTING OVER 90% ON AIRVO AT 40 L AND 50% FIO2. LUNGS CLEAR IN UPPER LOBES, RHONCHI NOTED IN LLL, CRACKLES NOTED IN RLL. PATIENT HAS DRY COUGH. SOB NOTED WITH EXERTION. PATIENT DESATS TO 60S QUICKLY WHEN PULLS O2 OFF. RR [address] IN [address], HR IN THE 1-TEENS. BP 127/81. PATIENT NPO FOR ASPIRATION RISK. RECEIVED REPORT THAT PATIENT USING URINAL INDEPENDENTLY IN BED. NO VOID YET THIS SHIFT. SKIN APPEARS WNL. NS INFUSING AT 75 MLS/ HOUR. BED LOW, CALL LIGHT IN REACH, BED ALARM ON. WILL CONTINUE TO MONITOR PATIENT FREQUENTLY THROUGHOUT SHIFT.
--- NOTE | 2021-10-04 08:33 | NUR ---
Dr. Matos here to see the patient. STates likely no PEG placement today due to his tachypnea and increased oxygen needs. States that he will talk to the attending hospitalist today, Dr. Vázquez.
--- NOTE | 2021-10-04 09:43 | NUR ---
DR. MENDOZA UPDATED ON PATIENT STATUS. INFORMED THAT PATIENT ONLY ORIENTED TO SELF, FAMILY AND YEAR THIS AM. INFORMED THAT STATED PATIENT BECAME CONFUSED AFTER BEING GIVEN ATIVAN. STATES THAT PATIENT DOES NOT TAKE ATIVAN AT HOME. INFORMED THAT PATIENT NOT ANXIOUS BUT IS VERY FORGETFUL AND CONTINUES TO TAKE AIRVO OFF. INFORMED THAT PATIENT DOES TAKE WELLBUTRIN AND GABAPENTIN AT HOME AND THAT IT IS NOT ON EMAR AT THIS TIME. INFORMED THAT PATIENT DESATTING DOWN TO 60S AND FAST WHEN TAKES O2 OFF. INFORMED THAT DR. DELGADO IN THIS AM AND THAT WITH RR IN THE HIGH 30S, NOT GOING TO PLACE PEG TUBE TODAY. INFORMED THAT IN ROOM AND WOULD LIKE TO SPEAK WITH DOCTOR THIS AM. ORDERS RECEIVED.
--- NOTE | 2021-10-04 11:45 | NUR ---
DR. ELLIS CONFIRMED DOBHOFF POSITIONING AND STATED IT IS GOOD TO USE.
--- NOTE | 2021-10-04 12:00 | NUR ---
PATIENT AFEBRILE. PATIENT SLIGHTLY MORE ORIENTED. PATIENT NOW KNOWS THAT HE IS IN [place]. PATIENT STILL STATING "[facility]" WHEN ASKED WHERE HE IS IN [place]. PATIENT STILL DOES REMAIN FORGETFUL. HR 110. BP 139/93. RR 30. CRACKLES NOTED IN LOWER LUNG LOBES. DOBHOFF PLACED. URINE DARK ORANGE IN COLOR. NO OTHER ACUTE CHANGES TO NOTE ON AT THIS TIME. WILL CONTINUE TO MONITOR.
--- NOTE | 2021-10-04 13:35 | NUR ---
JEVITY 1.2 STARTED AT 25 MLS PER HOUR WITH 70 ML WATER FLUSH Q2H. NS CHANGED TO TKO.
--- NOTE | 2021-10-04 13:41 | NUR ---
DR. HATCH IN TO SPEAK WITH PATIENT AND FAMILY.
--- NOTE | 2021-10-04 16:00 | NUR ---
PATIENT AFEBRILE. HR 118. BP 145/75. PATIENT ON 55L AND 65% FIO2 TO KEEP SATS 90% AND GREATER. RR 32. CPAP TRIED FOR SLEEP APNEA BUT PATIENT DID NOT TOLERATE. NO OTHER ACUTE CHANGES TO NOTE ON AT THIS TIME. WILL CONTINUE TO MONITOR.
--- NOTE | 2021-10-04 17:13 | NUR ---
DOBHOFF ACCIDENTLY PULLED BY PATIENT DURING PHYSICAL THERAPY SESSION. NEW DOBHOFF PLACED. PLACEMENT CONFIRMED BY PHONE. TF RESUMED.
--- NOTE | 2021-10-04 18:10 | NUR ---
SHIFT SUMMARY PATIENT SLEPT MOST OF SHIFT. PATIENT REMAINED LETHARGIC. PATIENT A LITTLE MORE ORIENTED THROUGHOUT SHIFT. PATIENT HAS BECOME ORIENTED TO SELF, , FOLLOWING DIRECTIONS AND TOWN. PATIENT REMAINS FORGETFUL AND TRIES TO PULL OUT DOBHOFF AND PULL OFF AIRVO. PATIENT OUT OF RESTRAINTS WHILE IN ROOM. PATIENT REMAINED WEAK BUT ABLE TO MOVE ALL EXTREMITIES AND SHIFT OWN HIPS. PATIENT REMAINED AFEBRILE. NO COMPLAINTS OF PAIN THIS SHIFT. PATIENT INCREASED ON AIRVO FROM 40 L AND 50% FIO2 TO 55 L AND 65% FIO2. RR HAS REMAINED IN 30S. CRACKLES REMAIN IN LOWER LUNG LOBES. CPAP PLACED FOR SLEEP APNEA BUT PATIENT UNABLE TO TOLERATE AND PLACED BACK ON AIRVO. PATIENT REMAINED IN ST, HR LOW 100S TO 1-TEENS. SBP 120S TO 140S. PATIENT REMAINED NPO. DOBHOFF X 2 PLACED THIS SHIFT. PATIENT ACCIDENTALLY PULLED FIRST ONE DURING PHYSICAL THERAPY. JEVITY 1.2 INFUSING AT 25 MLS/ HOUR WITH 70 ML WATER FLUSH Q2H. PATIENT HAD BM THIS SHIFT. PATIENT VOIDED 475 MLS OF DARK ORANGE COLORED URINE. PATIENT NEEDS ASSISTANCE WITH URINAL; ATTENDS IN PLACE. NO CHANGES TO SKIN NOTED. NS CHANGED FROM 75 MLS/ HOUR TO TKO. ATIVAN DC'D THIS SHIFT AIDED IN CONFUSION. HOME MEDS GABAPENTIN AND WELLBUTRIN ORDERED THIS SHIFT. PATIENT REFUSED BED BATH. IN MOST OF THE DAY. PATIENT APPEARS CONTENT AT THIS TIME. BED LOW, CALL LIGHT IN REACH, BED ALARM ON. REPORT WILL BE GIVEN TO ASSUMING WEALTH MANAGEMENT DIRECTOR NURSE SHORTLY.
[2021-10-05 05:16] LABS: Bun/Creatinine Ratio 28.8 (12.0-20.0); Calcium, Blood 8.3 mg/dL (8.5-10.1); Creatinine, Blood 0.42 mg/dL (0.60-1.20); Magnesium, Blood 2.2 mg/dL (1.6-2.4); Phosphorus, Blood 1.8 mg/dL (2.5-4.9); Potassium, Blood 3.5 mmol/L (3.5-5.5)
--- NOTE | 2021-10-05 07:57 | NUR ---
SHIFT SUMMARY PT IS AOX3 BUT APPEARED CONFUSED/DISORIENTED AT TIMES T/O SHIFT WHILE INTERMITTENTLY SLEEPING. PT FREQUENTLY DROWSY AND WOULD FALL ASLEEP WITH THIS RN IN ROOM. 1 L OF 02 VIA NC KEPT ON PT D/T DESATTING INTO 80'S DURING SHORT PERIODS OF APNEA. PT TACHYPNEIC WITH RR IN 20'S T/O SHIFT. HR 110'S-120'S FOR MOST OF SHIFT. WHEN PT SPIKED INTO 130'S THIS RN CALLED HOSPITALIST, ORDER GIVEN FOR DIGOXIN IV. THIS RN HOLDS D/T PT HR RETURNING TO BASELINE FROM START OF SHIFT AND CONCERN FOR GIVING DIGOXIN. PT HR SPIKES AGAIN THIS AM INTO 130'S JUST PRIOR TO SHIFT CHANGE. PT SBP VARIED T/O SHIFT. SBP WAS 115-120'S AND THEN 150'S-160'S, BACK DOWN TO 140'S THIS AM. PT DENIES CP T/O SHIFT. PT BECOMES AGITATED THIS AM AND CONFUSED, STATES HE THOUGHT HIS WAS COMING TO GET HIM AND DIDN'T UNDERSTAND WHY SHE WASN'T HERE YET. THIS RN ASKS PT WHY HE THOUGHT HIS WAS COMING TO GET HIM, PT STATED HE THOUGHT HE WAS GOING HOME BECAUSE HE WAS GETTING BETTER. PT INSISTED ON GETTING UP TO BEDSIDE COMMODE IN THE NIGHT TO ATTEMPT A BM. PT BARELY ABLE TO SIT-UP IN BED. HAD TO BE ASSISTED BY TWO STAFF MEMBERS, WAS ONLY ABLE TO STAND AND WAS NOT ABLE TO SIT TO COMMODE. PT ASSISTED BACK TO BED AND USED BEDPAN. PT FREQUENTLY STATED HIS ACCEPTABLE LEVEL OF PAIN WAS A 10 AND THAT HIS PAIN WAS 10/10 DESPITE INTERVENTIONS. PT TOLD THIS RN DURING THE SHIFT THAT HE WAS DEPRESSED BUT DENIED SI. PT TOLD SPOUSE THIS AM ON THE PHONE THAT HE WANTED TO GO HOME. PHARMACY NOTIFIED THIS RN THAT VALPROIC ACID WAS IN LOW SUPPLY AND THAT IT WOULD BE IDEAL IF PT COULD BE SWITCHED TO PO THERE ARE ONLY 4 VIALS LEFT ONSITE. THIS RN NOTIFIED ONCOMING RN ELZA.
--- NOTE | 2021-10-05 08:11 | NUR ---
SHIFT SUMMARY PT WAS AOX3, DISORIENTED TO PLACE, SITUATION, AND EVENTS. ORIENTED TO SELF, FAMILY AND FOLLOWED MOST INSTRUCTIONS. PT HR ST T/O SHIFT AND INCREASED TO 120 BPM APPEARS ASSOCIATED W/RISE IN TEMP TO 100.4 F AXILLARY. PT HAD TO BE PLACED ON CPAP THIS AM D/T INCREASED WORK OF BREATHING AFTER EPISODE OF COUGHING THAT DID NOT RESOLVE DESPITE NO FURTHER COUGHING. RR 38-44. PT APPEARED TO HAVE LABORED BREATHING W/CHEST MOVEMENT THAT APEARED ASSYMETRICAL AND PULLING TO R SIDE. PT HAD ABNORMAL LS TO R THAT MAY BE DESCRIBED AN INCREASED RUB W/ COARSER DIMINISHED SOUNDS IN THE LEFT. PT SATS NOT MAINTAINED ON AIRVO ALONE. ROSS RT PLACED PT ON CPAP AT 8 CM AND 100%. SATS IMMEDIATELY UP INTO HIGH 90'S. RR CONTINUES IN 40'S WITH CPAP. PT'S CONTACTED AND DR FORREST CONTACTED REGARDING DESIRE FOR CHEST XRAY AND TO NOTIFY OF PT DECLINE. PT STILL REMAINS COOPERATIVE, FOLLOWS INSTRUCTIONS. TF PAUSED. RESTRAINTS DC. DR FORREST PLACES ORDER FOR PAUSE OF TF D/T ASPIRATION RISK. OF PT AT BEDSIDE AND PROVIDED UPDATE.
--- NOTE | 2021-10-05 16:07 | NUR ---
END OF SHIFT: [facility] TF RESUMED AT LOW RATE, POTASSIUM PHOS 20MMOL RAN, AND CEFIPINE TWICE DURING THIS SHIFT: PATIENT HAS BEEN SLEEPING MOST OF THE DAY, HAS HAD A INCIDENCE OF CONFUSION THAT DID NOT LAST, HE WAS WAKING UP. PATIENT HAS BEEN COOPERATIVE WITH CARE, ORAL CARE DONE, NEW TF BAG AND FLUSH, PATIENT HAS NOTICED A DIFFERENCE WITH TF RUNING. STILL ONLY RUNNING AT 25 TO SEE IF PATIENT TOLERATES, NO CHANGE IN LUNG SOUNDS HEARD FROM THIS MANAGER TELECOM, BUT IMPROVED FORM MORNING ASSESSMENT. PATIENT TOLERATING BOTH AIRVO AND CPAP, WORKING BETTER ON CPAP BUT TENDS TO SLEEP BETTER ON AIRVO. PATIENTS AT BEDSIDE, PATIENT REPOSITIONED Q2 OR SOONER, MEDICATIONS PER TUBE WITH NO COMPLIACTIONS PATIENT DENIES CHEST PAIN OR SOB AT REST. DRY COUGH THROUGH THE DAY EVEN WITHOUT TUBE FEED RUNNING. WILL CONTINUE APTIENT UNTIL END OF SHIFT. PATIENT SPO2 >89% ON AIRVO SETTINGS OF 55L 75%
--- NOTE | 2021-10-05 18:50 | NUR ---
PT ON PIPAP SLEEPING. REVIEW OF CARE WITH . sHE REVIEWED HIS RADIATION CARE AND ONCOLOGY VISITS IN [facility] PT IS AWAITING IMMUNOSUPPRESIVE THERAPY. REVIEW OF THE PAST FEW MONTHS AND SYNPTOMS. PT HAS HAD SOME MINOR HEADACHES. PT HAS SEVERE EAR INJURY FORM HIS PROFESSION AND HAD RINGING AND DYSEQUALIBRIUM FROM HIS HEARING. hE HAS HAD SOME INFECTIONS IN HIS TEETH THIS PAST YEAR. wORSEING DYSPNEA AND FATIGUE. sTUGGLING WITH SLEEP DUE TO AIR HUNGER MOSTLY JUST DOSES OFF. NO NAUSE OR CANSTIPATION. 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 WILL UPDATE PHYSICL THERPY ON THE RINGING IN THE EARS WILL MONITOR TOLERANCE OF TUBE FEED AND ACTIVITY. WILL UPDATE CARE MANGER ON NEED FOR ONCOLGY PLAN OF CARE WITH [place].
[2021-10-06 03:33] LABS: BASOPHILS ABSOLUTE AUTO 0.02 K/mm3 (0.00-0.23); BASOPHILS PERCENT AUTO 0 % (0-2); EOSINOPHILS ABSOLUTE AUTO 0.22 K/mm3 (0.00-0.68); EOSINOPHILS PERCENT AUTO 2 % (0-6); Hematocrit 23.9 % (37.0-53.0); Hemoglobin 7.9 g/dL (13.5-17.5); IMMATURE GRAN ABSOLUTE AUTO 0.05 K/mm3 (0.00-0.10); IMMATURE GRAN PERCENT AUTO 1 % (0-1); LYMPHOCYTES ABSOLUTE AUTO 0.62 K/mm3 (0.84-5.20); LYMPHOCYTES PERCENT AUTO 6 % (21-46); MONOCYTES ABSOLUTE AUTO 0.38 K/mm3 (0.16-1.47); MONOCYTES PERCENT AUTO 4 % (4-13); Mean Corpuscular HGB 29.7 pg (26.0-34.0); Mean Corpuscular HGB Conc 33.1 g/dL (31.5-36.5); Mean Corpuscular Volume 90 fL (80-100); Mean Platelet Volume 9.1 fL (9.1-12.4); NEUTROPHILS ABSOLUTE AUTO 9.26 K/mm3 (1.96-9.15); NEUTROPHILS PERCENT AUTO 88 % (41-73); NRBC ABSOLUTE 0.03 K/mm3 (0.00-0.02); NRBC Auto 0.3 /100 WBC (0.0-0.2); Platelet Count 275 K/mm3 (150-400); RDW Coefficient Variation 16.4 % (11.7-14.2); RDW Standard Deviation 53.7 fL (35.1-46.3); Red Blood Cell Count 2.66 M/mm3 (4.30-5.90); White Blood Cell Count 10.55 K/mm3 (4.00-11.30)
[2021-10-06 03:52] LABS: Anion Gap 4 mmol/L (6-16); Blood Urea Nitrogen 10 mg/dL (8-24); Bun/Creatinine Ratio 25.8 (12.0-20.0); CO2, Blood 32 mmol/L (21-32); Calcium, Blood 8.2 mg/dL (8.5-10.1); Chloride, Blood 101 mmol/L (98-108); Creatinine, Blood 0.39 mg/dL (0.60-1.20); Glomerular Filtration Rate 119 (60-); Glucose, Blood 144 mg/dL (70-99); Phosphorus, Blood 2.2 mg/dL (2.5-4.9); Potassium, Blood 3.8 mmol/L (3.5-5.5); Sodium, Blood 137 mmol/L (136-145)
--- NOTE | 2021-10-06 05:34 | NUR ---
BULLARD OPERATOR SUMMARY PT IS ALERT AND COMMUNICATING APPROPRIATELY THIS SHIFT. PT MAINTAINED O2 SATS >90% ON CPAP OF 8 W 75% FIO2 THIS SHIFT. PT ATTEMPTED TO TAKE A BREAK FROM CPAP AND WAS ON AIRVO 60L W 85% FIO2 WHICH HE WAS ABLE T DO WELL ON FFROM 0400 TO 0530 BUT HE THEN HAD A COUGHING FIT CAUSING HIS O2 TO DROP TO 60% REQUIRING THE CPAP MASK TO CATH UP, PT CURRENTLY ON CPAP OF 8 W 75% FIO2. BP WNL AND STABLE. TELE SHOWING ST 100-125 THIS SHIFT. PT AFEBRILE W PEAK TEMP OF 99.0. TUBE FEEDINGS RUNNING AND ADVANCED THROUGHOUT THE SHIFT, PT AT GOAL RATE OF 65ML/HR OF 0. CBG'S STABLE. PT SLEPT COMFORTABLY FOR MOST OF THE SHIFT W HIS AT THE BEDSIDE. WILL REPORT TO ONCOMING RN.
--- NOTE | 2021-10-06 06:49 | NUR ---
UPDATE PT EARLY THIS AM 0630 PT HAVING ANXIETY ATTACK W INCREASE DYSPNEA. O2 SATS STABLE >90% ON CPAP OF 8 W 75% FIO2 HOWEVER, PT VERY RESTLESS AND PANICKY. PT GIVEN PRN XANAX W NO RELIEF. PT THEN REPORTING WORSENING BACK PAIN SO PRN PAIN MEDICATION GIVEN WHICH APPEARED TO RELIEVE HIS SYMPTOMS. PT STILL SOB W RR IN THE MID 20'S BUT HE IS LESS ANXIOUS. AT BEDSIDE.
--- NOTE | 2021-10-06 12:37 | NUR ---
ASSUMPTION OF CARE NOTE PT SLEEPING AND DAUGHTER AT BEDSIDE. SPO2 AT 96% VIA CPAP WITH 8L BLEED AND FIO2 60%. HE WAKES TO VERBAL STIMULI AND WAS ORIENTED TO SELF, FAMILY, AND SITUATION. BP STABLE, HR 115 PER TELE MONITORING. TUBE FEEDING RUNNING AT GOAL RATE OF 65 ML/HR. CALL LIGHT IN REACH.
--- NOTE | 2021-10-06 19:08 | NUR ---
SHIFT SUMMARY THIS NURSE ASSUMED CARE OF PT AT APPROX 1130. PT WAS ALERT TO FAMILY, PLACE, AND SELF. HE IS ON CPAP 8L BLEED, FIO2 RANGING FROM 55-65%. PT HAD PANIC ATTACK AND DESATURATED TO 88% THEREFOR FIO2 INCREASED TO 65%. BP AND HR STABLE. FAMILY HAS BEEN AT BEDSIDE T/O SHIFT. SEE EMAR FOR MANAGEMENT OF PANIC ATTACKS. DR. AVERY WAS AT BEDSIDE THIS AFTERNOON. TUBE FEEDING AT GOAL RATE OF 65ML/HR WITH 70ML FLUSHES EVERY 2 HOURS. POWERGLIDE IN LEFT UPPER ARM IS SALINE LOCKED. PT REPOSITIONED Q2 HOURS TO PREVENT SKIN BREAKDOWN. HE DENIED PAIN DURING SHIFT. HE VOIDED THIS AM UTILIZING BEDSIDE URINAL PER REPORT. NO OTHER ACUTE CHANGES NOTED. REPORT GIVEN TO ESVIN QUIÑONEZ.
[2021-10-07 04:15] LABS: BASOPHILS ABSOLUTE AUTO 0.02 K/mm3 (0.00-0.23); BASOPHILS PERCENT AUTO 0 % (0-2); EOSINOPHILS ABSOLUTE AUTO 0.22 K/mm3 (0.00-0.68); EOSINOPHILS PERCENT AUTO 2 % (0-6); Hematocrit 23.2 % (37.0-53.0); Hemoglobin 7.5 g/dL (13.5-17.5); IMMATURE GRAN ABSOLUTE AUTO 0.05 K/mm3 (0.00-0.10); IMMATURE GRAN PERCENT AUTO 0 % (0-1); LYMPHOCYTES ABSOLUTE AUTO 0.56 K/mm3 (0.84-5.20); LYMPHOCYTES PERCENT AUTO 5 % (21-46); MONOCYTES ABSOLUTE AUTO 0.43 K/mm3 (0.16-1.47); MONOCYTES PERCENT AUTO 4 % (4-13); Mean Corpuscular HGB 29.6 pg (26.0-34.0); Mean Corpuscular HGB Conc 32.3 g/dL (31.5-36.5); Mean Corpuscular Volume 92 fL (80-100); Mean Platelet Volume 9.2 fL (9.1-12.4); NEUTROPHILS ABSOLUTE AUTO 9.94 K/mm3 (1.96-9.15); NEUTROPHILS PERCENT AUTO 89 % (41-73); Platelet Count 285 K/mm3 (150-400); RDW Coefficient Variation 16.8 % (11.7-14.2); RDW Standard Deviation 55.4 fL (35.1-46.3); Red Blood Cell Count 2.53 M/mm3 (4.30-5.90); White Blood Cell Count 11.22 K/mm3 (4.00-11.30)
[2021-10-07 04:41] LABS: Albumin, Blood 1.9 g/dL (3.4-5.0); Anion Gap 3 mmol/L (6-16); Blood Urea Nitrogen 11 mg/dL (8-24); Bun/Creatinine Ratio 27.9 (12.0-20.0); CO2, Blood 34 mmol/L (21-32); Calcium, Blood 8.3 mg/dL (8.5-10.1); Chloride, Blood 101 mmol/L (98-108); Creatinine, Blood 0.39 mg/dL (0.60-1.20); Glomerular Filtration Rate 119 (60-); Glucose, Blood 141 mg/dL (70-99); Phosphorus, Blood 2.5 mg/dL (2.5-4.9); Sodium, Blood 138 mmol/L (136-145)
--- NOTE | 2021-10-07 05:44 | NUR ---
CAR SHIFTER SUMMARY PT HAS REMAINED ALERT AND COMMUNICATING APPROPRIATELY THIS SHIFT. O2 SATS >90% ON CPAP 8 W 60% FIO2 THIS SHIFT HAVING MINIMAL DESATS DURING THE NIGHT. PT RECIEVING ABX PER NEW ORDERS THROUGHOUT THE NIGHT WELL TF AT GOAL RATE OF 65ML/HR HOWEVER, DESPITE THIS HIS URINE OUTPUT REMAINS MINIMAL W ONLY ONE INCONTINENT VOID THIS SHIFT, SEE I&O'S FOR DETAILS. TELE SHOWING ST 100-120 THIS SHIFT. ORAL CARE PROVIDED THROUGHOUT THE SHIFT. FAMILY AT THE BEDSIDE ALL NIGHT. WILL REPORT TO ONCOMING RN.
--- NOTE | 2021-10-07 11:03 | NUR ---
CARE NOTE PT EXPERIENCED PANIC ATTACK THIS AM, SEE EMAR FOR MEDICATION MANAGEMENT. SPO2 DIPPED TO 40%, RESPIRATORY THERAPIST JADE ALBRECHT IN ROOM. DR. ALLEN MADE AWARE. AM ORAL CARE HELD UNTIL PT WAS RECOVERED AND LESS ANXIOUS. FAMILY AT BEDSIDE. PALLIATIVE CARE CALLED, THIS NURSE SPOKE WITH CARLY QUIÑONEZ AND HE STATED THAT HE WOULD PASS MESSAGE TO MENDOZA RN TO EVALUATE PT DURING SHIFT. HR IN 12-130'S DR. ALLEN ALSO MADE AWARE. WILL CONTINUE TO MONITOR. CALL LIGHT IN REACH. PT NOW APPEARS COMFORTABLE AND IS TALKING WITH FAMILY.
--- NOTE | 2021-10-07 14:34 | NUR ---
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 He was diagnosed at the [facility], but was set up with a local Radiation Oncologist, Dr. Ying. He was hospitalized on September 15 and again on September 22 for Acute Respiratory Failure. The patient has unfortunately been unable to wean down from high flow oxygen, and this has become a complication. CLINICAL STATUS: -Pt's pneumonia appears to be intractable, as multiple treatments/antibiotics have been given with no improvement. -His Albumin is trending down; currently 1.9L down from 2.4L on 09/29. -Dysphagia leading to recurrent aspiration. SYMPTOMS: -Dyspnea with increasing respiratory rate -Pain requiring increasing doses of analgesic SIGNS: -Decline in systolic blood pressure -Weakness -Changes in LOC LABORATORY: Increasing pC02 and decreasing Sa02 The patient exhibits physiologic impairment of functional status as demonstrated by a Karnofsky Performance Status (KPS) score of 20% and Palliative Performance Score (PPS) is also 20%. The patient requires assistance with all ADL's due to dyspnea. Even if pt stabilized he would remain high risk for readmission. Plan to meet with pt's family today for therapeutic conversation at 1700.
--- NOTE | 2021-10-07 18:04 | NUR ---
SHIFT SUMMARY PT ALERT TO SELF AND FAMILY. HE IS ABLE TO FOLLOW DIRECTION BUT APPEARS CONFUSED AT TIMES. FAMILY HAS BEEN AT BEDSIDE T/O SHIFT. PT HAD PANIC ATTACK AGAIN THIS AFTERNOON AND DESATURATED TO 70'S. SEE EMAR FOR MEDICATION MANAGEMENT. HE HAS SWITCHED FROM CPAP W/ 8L BLEED, FIO2 80% TO AIRVO 55L @75% FIO2. HE HAS DENIED FEELINGS OF CHEST PAIN/PRESSURE T/O SHIFT. TUBE FEEDING IS AT GOAL RATE OF 65 ML/HR WITH 70ML FLUSHES Q2 HOURS. POWERGLIDE IN LEFT UPPER ARM IS SALINE LOCKED. IV IN RIGHT FOREARM IS INFUSING PER EMAR. PT WAS ABLE TO UTILIZE BEDSIDE URINAL W/ ASSISTANCE. MENDOZA FROM PALLIATIVE CARE EVALUATED PT TODAY AND HELD A MEETING WITH FAMILY AT 1700 TO DISCUSS GOALS OF CARE. HE DENIED FEELINGS OF NAUSEA/VOMITTING. BILAT SEQ COMPRESSION DEVICE IN PLACE FOR DVT PROPHYLAXIS. Q2 TURNING INITIATED DURING SHIFT TO PREVENT SKIN BREAKDOWN. NO OTHER ACUTE CHANGES NOTED. WILL CONTINUE TO MONITOR UNTIL REPORT GIVEN.
[2021-10-07 20:47] LABS: Vancomycin, Trough 9.1 ug/mL (5.0-10.0)
--- NOTE | 2021-10-07 21:14 | NUR ---
CARE ASSUMPTION PT LYING IN BED AWAKE W FAMILY AT BEDSIDE. O2 SATS >90% ON AIRVO 50L AND 75% FIO2. PT APPEARING A LITTLE MORE RESTLESS AND CONFUSED COMPARED TO THE PREVIOUS NIGHT. PT IS COMMUNICATING AND FOLLOWING COMMANDS. BP WNL AND STABLE. TELE SHOWING ST IN THE 110'S. PT AFEBRILE. ORAL CARE DONE AND PT DENYING ANY FURTHER NEEDS AT THIS TIME.
--- NOTE | 2021-10-07 22:35 | NUR ---
UPDATE PT DISORIENTED AND PULLING OFF OXYGEN CAUSING O2 SATS TO DROP DOWN TO 49%. O2 PLACED ON PT AND PT GIVEN 100% FIO2 TO WHICH HE RECOVERED IN APPROX 1 MIN TO >90%. RT NOTIFIED AND ASSESSED THE PT. PT CURRENTLY ON AIRVO 60L W 75% O2 SATS >90%.
--- NOTE | 2021-10-07 23:40 | NUR ---
UPDATE PT PULLED O2 OFF CAUSING O2 SATS TO DROP INTO THE 40'S. AIRVO PLACED BACK ON PT HOWEVER HE DID NOT RECOVER ABOU 8% SO PT PLACED BACK ON CPAP OF 8 W 80% FIO2 TO MAINTAIN O2 SATS >90%. RT NOTIFIED AND ASSESSED THE PT AT THE BEDSIDE.
--- NOTE | 2021-10-08 04:05 | NUR ---
UPDATE PT VERY DISORIENTED AND RESTLESS CONTINUING TO PULL OFF OXYGEN CAUSING RAPID DESATTS LOW THE 50'S. AFTER SEVERAL ATTEMPTS TO REDIRECT THE PT THE NOC PROVIDER WAS CONTACTED AND RESTRAINTS WERE INITIATED TO KEEP THE PT FROM PULLING OFF HIS O2. PT IS VERY DISORIENTED AT THIS TIME.
[2021-10-08 04:32] LABS: BASOPHILS ABSOLUTE AUTO 0.03 K/mm3 (0.00-0.23); BASOPHILS PERCENT AUTO 0 % (0-2); EOSINOPHILS ABSOLUTE AUTO 0.17 K/mm3 (0.00-0.68); EOSINOPHILS PERCENT AUTO 1 % (0-6); Hematocrit 26.6 % (37.0-53.0); Hemoglobin 8.4 g/dL (13.5-17.5); IMMATURE GRAN ABSOLUTE AUTO 0.09 K/mm3 (0.00-0.10); IMMATURE GRAN PERCENT AUTO 1 % (0-1); LYMPHOCYTES PERCENT AUTO 7 % (21-46); MONOCYTES ABSOLUTE AUTO 0.51 K/mm3 (0.16-1.47); MONOCYTES PERCENT AUTO 4 % (4-13); Mean Corpuscular HGB 29.4 pg (26.0-34.0); Mean Corpuscular HGB Conc 31.6 g/dL (31.5-36.5); Mean Corpuscular Volume 93 fL (80-100); Mean Platelet Volume 9.3 fL (9.1-12.4); NEUTROPHILS ABSOLUTE AUTO 10.38 K/mm3 (1.96-9.15); NEUTROPHILS PERCENT AUTO 87 % (41-73); NRBC ABSOLUTE 0.04 K/mm3 (0.00-0.02); NRBC Auto 0.3 /100 WBC (0.0-0.2); Platelet Count 321 K/mm3 (150-400); RDW Coefficient Variation 17.3 % (11.7-14.2); RDW Standard Deviation 58.7 fL (35.1-46.3); Red Blood Cell Count 2.86 M/mm3 (4.30-5.90); White Blood Cell Count 11.98 K/mm3 (4.00-11.30)
[2021-10-08 05:08] LABS: Albumin, Blood 2.1 g/dL (3.4-5.0); Anion Gap 3 mmol/L (6-16); Blood Urea Nitrogen 12 mg/dL (8-24); Bun/Creatinine Ratio 27.8 (12.0-20.0); CO2, Blood 37 mmol/L (21-32); Calcium, Blood 8.5 mg/dL (8.5-10.1); Chloride, Blood 100 mmol/L (98-108); Creatinine, Blood 0.43 mg/dL (0.60-1.20); Glomerular Filtration Rate 116 (60-); Glucose, Blood 133 mg/dL (70-99); Phosphorus, Blood 3.3 mg/dL (2.5-4.9); Potassium, Blood 4.6 mmol/L (3.5-5.5); Sodium, Blood 140 mmol/L (136-145)
--- NOTE | 2021-10-08 06:00 | NUR ---
BEHAVIORAL HEALTH ASSISTANT SUMMARY PT'S MENTATION IS MUCH MORE DISORIENTED THIS SGHIFT COMPARED TO PREVIOUS NIGHT. THE PT WAS NOT REDIRECTABLE THIS SHIFT CONTINUING TO PULL OFF O2 CAUSING O2 SATS TO DROP LOW THE 50'S. APPROX 0340 THE PT WAS PLACED IN RESTRAINTS FOR HIS SAFETY DUE TO THE CONTINUED REMOVAL OF O2 WHERE HE REMAINED ON AIRVO 50L 75% FIO2 W O2 SATS >90%, SEE PREVIOUS NOTES FOR DETAILS. TELE STILL SHOWING ST 110-130'S THIS SHIFT. PT VOIDING WELL THIS SHIFT, SEE I&O'S FOR DETAILS. TF RUNNING AT 65ML/HR, PT TOLERATING THEM WELL AND CBG'S REMAIN STABLE. BP WNL AND STABLE. PT AFEBRILE THIS SHIFT. WILL REPORT TO ONCOMING RN.
--- NOTE | 2021-10-08 11:50 | NUR ---
Dr. Christine had a discussion with pt today regarding prognosis. As discussed with pt's family with this RN yesterday, it may be time to consider de-escalating care. Pt has made no improvements in respiratory status, and remains on 75% Fio2 on 50L/min 02. He began Zosyn 10/06 and Vancomycin 10/07. They are agreeable to wait a couple more days on these new antibiotics before making any final decisions. Dr. Chauhan gave verbal order to begin Roxanol 5mg SL every 2 hrs as needed for air hunger. Palliative care will remain available to pt and to family.
--- NOTE | 2021-10-08 19:26 | NUR ---
SHIFT SUMMARY PT ALERT TO SELF AND FAMILY. AT TIMES HE IS ORIENTED TO SITUATION BUT THEN OTHER TIMES BECOMES CONFUSED AND WILL START PULLING AT MASK. HE HAS HAD EPISODES OF PANIC ATTACKS, SEE EMAR FOR MEDICATION MANAGEMENT. BP STABLE, HR 110-120 PER TELE MONITORING. HE HAS SWITCHED FROM AIRVO 60L AT 70% FIO2 TO CPAP 8L BLEED 70% FIO2. HAS BEEN AT BEDSIDE T/O SHIFT. HE HAS DENIED CHEST PAIN/PRESSURE. TF IS AT GOAL RATE OF 65ML/HR WITH 70ML FLUSHES Q6 PER EMAR ORDERS, HE DENIES FEELINGS OF NAUSEA. IV IN RIGHT UPPER ARM IS SALINE LOCKED. POWERGLIDE IN LEFT UPPER ARM IS INFUSING NS PER EMAR ORDERS. HE HAS UTILIZED BEDSIDE URINAL TO VOID. DR. AVERY WAS AT BEDSIDE AT 1100 AND DISCUSSED PLAN WITH . Q2 TURNING INITIATED TO PREVENT SKIN BREAKDOWN. NO OTHER ACUTE CHANGES NOTED. REPORT GIVEN TO SHIRAZ QUIÑONEZ.
[2021-10-08 20:30] LABS: Vancomycin, Trough 27.6 ug/mL (5.0-10.0)
--- NOTE | 2021-10-08 21:00 | NUR ---
ASSUMPTION OF CARE Assumed care of pt at 1900. DNR. Patient pulling off CPAP mask, redirectable and mask placed back on. Settings 8L/70% and maintaining over 90%. Desats with pulling off mask very quickly and slow to recover. Bed in low position, call light within reach, bed alarm on.
--- NOTE | 2021-10-08 21:40 | NUR ---
Patient pulls off CPAP mask and desats into low 70's very quickly. Patient is redirectable and mask was placed back on. Takes 2 minutes to recover.
--- NOTE | 2021-10-08 22:20 | NUR ---
Patient attempted to pull of HFNC and accidentally pulled Dobbhoff. Dobbhoff resecured but unable to be used. End of Dobbhoff has large leak and unable to flush. This one was removed. Attempted to reinsert new Dobbhoff and patient was unable to tolerate insertion. Decision made with grade checker to hold off on reinsertion for now. Checking CBG more frequently until tube can be replaced.
--- NOTE | 2021-10-09 00:49 | NUR ---
Patient was in pain. Unable to provide patients normal pain medication due to it being an extended release and being strict NPO - everything must be crushed and put through the tube. Unable to crush extended release. Medicating with Roxanol for air hunger, and managing with Fentanyl PRN order. Good relief is achieved with these. Patient is resting comfortably with CPAP mask in place.
--- NOTE | 2021-10-09 03:55 | NUR ---
Patient responds better to the Fentanyl PRN, more redirectable. Patients , July, is at the bedside at the request of the patient.
[2021-10-09 04:26] LABS: Vancomycin, Random 20.6 ug/mL
[2021-10-09 06:15] LABS: BASOPHILS ABSOLUTE AUTO 0.04 K/mm3 (0.00-0.23); BASOPHILS PERCENT AUTO 0 % (0-2); EOSINOPHILS ABSOLUTE AUTO 0.22 K/mm3 (0.00-0.68); EOSINOPHILS PERCENT AUTO 2 % (0-6); Hematocrit 27.4 % (37.0-53.0); Hemoglobin 8.6 g/dL (13.5-17.5); IMMATURE GRAN PERCENT AUTO 1 % (0-1); LYMPHOCYTES ABSOLUTE AUTO 0.82 K/mm3 (0.84-5.20); LYMPHOCYTES PERCENT AUTO 7 % (21-46); MONOCYTES ABSOLUTE AUTO 0.67 K/mm3 (0.16-1.47); MONOCYTES PERCENT AUTO 5 % (4-13); Mean Corpuscular HGB 29.7 pg (26.0-34.0); Mean Corpuscular HGB Conc 31.4 g/dL (31.5-36.5); Mean Corpuscular Volume 95 fL (80-100); Mean Platelet Volume 9.4 fL (9.1-12.4); NEUTROPHILS ABSOLUTE AUTO 10.55 K/mm3 (1.96-9.15); NEUTROPHILS PERCENT AUTO 85 % (41-73); NRBC ABSOLUTE 0.08 K/mm3 (0.00-0.02); NRBC Auto 0.6 /100 WBC (0.0-0.2); Platelet Count 296 K/mm3 (150-400); RDW Coefficient Variation 17.3 % (11.7-14.2); RDW Standard Deviation 59.3 fL (35.1-46.3)
--- NOTE | 2021-10-09 06:15 | NUR ---
SHIFT SUMMARY Patient remains A/O to self and knows he's in the hospital. Weakness t/o. Maintaining over 92% on either CPAP 8L/70% or Airvo 70L/70%. Multiple periods of pulling off oxygen and was not redirectable. Desats and takes about 2 minutes to recover, if on Airvo - requires blow by nonrebreather to recover. Roxanol is being given q2 for airhunger, but appears to not be very effective. The Fentanyl PRN given for pain seems to help the pain and air hunger more. LS clear on top and fine crackles at bases. Shallow breathing pattern and tachypnea. Patients normal extended release pain medication is unable to be given due to strict NPO status and the inability to crush extended release pill to put it through Dobbhoff. PG in JAQUELIN infiltrated while running NS, and subsequently was removed. Dobbhoff was removed this shift (see note) and unable to be replaced at this time. BP stable with SBP 90's but MAP always over [address] on tele 110's. Hypoactive bowel tones t/o all quadrants. Denies N/V. Mostly incontinent of urine and feces, sometimes able to use urinal. Patient requested we call and ask his (July) to come in d/t increased anxiety, she is at the bedside now with him. Will report to dayshitrinity QUIÑONEZ
[2021-10-09 06:38] LABS: Albumin, Blood 2.2 g/dL (3.4-5.0); Anion Gap 4 mmol/L (6-16); Blood Urea Nitrogen 21 mg/dL (8-24); Bun/Creatinine Ratio 28.4 (12.0-20.0); CO2, Blood 39 mmol/L (21-32); Calcium, Blood 8.9 mg/dL (8.5-10.1); Chloride, Blood 99 mmol/L (98-108); Creatinine, Blood 0.74 mg/dL (0.60-1.20); Glomerular Filtration Rate 98 (60-); Glucose, Blood 109 mg/dL (70-99); Phosphorus, Blood 3.6 mg/dL (2.5-4.9); Potassium, Blood 4.1 mmol/L (3.5-5.5); Sodium, Blood 142 mmol/L (136-145)
--- NOTE | 2021-10-09 14:35 | NUR ---
The pt is currently visiting with a friend at the bedside. Today is the first day the pt has gone this long without a panic attack, and he hasn't had any xanax, as it was being given via dobhoff. The pt has been strugglng with general anxiety disorder, clausterphobia, and air hunger since needing high flow air delivery, especially via face mask. He pulled out the dobhoff last night by accident while having a panic attack. The last time he pulled at his mask and ended up pulling out dobhoff, it took 4 attempts in order to replace it. The pt remembers this well, and isn't wanting to retry it at this time. He also knows he isn't a candidate for a PEG at this time related to his extremely compromised airway. His July agrees. After consulting with pharmacist on replacing scheduled MS Contin and prn pain meds, received order for 25mcg Fentanyl patch, and keeping prn roxanol and fentanyl for breakthrough. If these medications don't help with anxiety related to air hunger, will relook at prn anti-anxiety medication another route other than via dobhoff. Pt and are on board with this plan. Will continue to follow.
--- NOTE | 2021-10-09 19:23 | NUR ---
SHIFT SUMMARY PT A&O X4. VSS. MONITOR SHOWING ST, HR 100-120s. SPO2 > 92% ON AIRVO @ 70L, FIO2 70% UPON CARE ASSUMPTION, TITRATED DOWN TO 60L, FIO2 60% THIS SHIFT W/ PT TOLERATING WELL. PT CONTINUES TO BE STRICT NPO & DOBHOFF REMAINS OUT W/ PT & PT SPOUSE REPORT OF NOT WANTING TUBE TO BE REINSERTED. MD ANGELO W/ ORDERS FOR ANIMAL SURGEON CONSULT THIS SHIFT, FOLLOWED BY ANIMAL SURGEON W/ ORDERS FOR PPN STARTED THIS SHIFT. PALLIATIVE CARE NURSE ASSISTING W/ PT & PT SPOUSE @ BEDSIDE THIS SHIFT, SEE PREVIOUS PALLIATIVE CARE NURSE NOTE. PT REPORTING "THIS IS THE BEST DAY HE'S HAD IN A LONG TIME, IN WEEKS PERHAPS." PT REPORTING PANIC ATTACKS LESS SEVERE TODAY W/ PT ABILITY TO "MEDITATE & WORK HIMSELF THROUGH IT." EPISODES OF PT CALLING TO NURSE SAYING "I FEEL ANXIETY" TODAY, SPO2 NOTED TO BE TRENDING DOWN DURING THOSE EPISODES. PT ABLE TO TAKE DEEP BREATHS AND USE NRB MASK AT BEDSIDE IN ADDITION TO AIRVO FOR TEMPORARY OXYGEN INCREASE NEEDS. PT RECOVERING WELL. PT REPORTING GENERALIZED ACHE W/ PT REPORT OF IMPROVEMENT W/ USE OF NEW ORDER FOR FENTANYL PATCH THIS SHIFT. PRN IV FENTANYL GIVEN X1 THIS SHIFT W/ PT REPORT OF IMPROVEMENT. PRN ROXANOL USED X2 THIS SHIFT W/ PT REPORT OF IMPROVEMENT ONLY ONE OF THE TWO TIMES USED. REPORT GIVEN TO MOBILE TESTER RN.
[2021-10-10 04:44] LABS: BASOPHILS ABSOLUTE AUTO 0.05 K/mm3 (0.00-0.23); BASOPHILS PERCENT AUTO 1 % (0-2); EOSINOPHILS ABSOLUTE AUTO 0.33 K/mm3 (0.00-0.68); EOSINOPHILS PERCENT AUTO 3 % (0-6); Hematocrit 23.9 % (37.0-53.0); Hemoglobin 7.5 g/dL (13.5-17.5); IMMATURE GRAN ABSOLUTE AUTO 0.11 K/mm3 (0.00-0.10); IMMATURE GRAN PERCENT AUTO 1 % (0-1); LYMPHOCYTES ABSOLUTE AUTO 0.57 K/mm3 (0.84-5.20); LYMPHOCYTES PERCENT AUTO 6 % (21-46); MONOCYTES ABSOLUTE AUTO 0.37 K/mm3 (0.16-1.47); MONOCYTES PERCENT AUTO 4 % (4-13); Mean Corpuscular HGB 29.4 pg (26.0-34.0); Mean Corpuscular HGB Conc 31.4 g/dL (31.5-36.5); Mean Corpuscular Volume 94 fL (80-100); Mean Platelet Volume 9.5 fL (9.1-12.4); NEUTROPHILS ABSOLUTE AUTO 8.31 K/mm3 (1.96-9.15); NEUTROPHILS PERCENT AUTO 85 % (41-73); NRBC ABSOLUTE 0.07 K/mm3 (0.00-0.02); NRBC Auto 0.7 /100 WBC (0.0-0.2); Platelet Count 308 K/mm3 (150-400); RDW Coefficient Variation 17.3 % (11.7-14.2); RDW Standard Deviation 57.3 fL (35.1-46.3); Red Blood Cell Count 2.55 M/mm3 (4.30-5.90); White Blood Cell Count 9.74 K/mm3 (4.00-11.30)
[2021-10-10 05:07] LABS: Alanine Aminotransfer (ALT/SGP 104 U/L (12-78); Albumin, Blood 2.2 g/dL (3.4-5.0); Albumin/Globulin Ratio 0.6 (0.8-1.8); Alk Phos 361 U/L (50-136); Anion Gap 6 mmol/L (6-16); Aspartate Aminotrans (AST/SGOT 26 U/L (12-37); Blood Urea Nitrogen 27 mg/dL (8-24); Bun/Creatinine Ratio 30.2 (12.0-20.0); CO2, Blood 40 mmol/L (21-32); Calcium, Blood 8.5 mg/dL (8.5-10.1); Chloride, Blood 98 mmol/L (98-108); Creatinine, Blood 0.89 mg/dL (0.60-1.20); Glomerular Filtration Rate 93 (60-); Glucose, Blood 161 mg/dL (70-99); Magnesium, Blood 2.6 mg/dL (1.6-2.4); Phosphorus, Blood 3.8 mg/dL (2.5-4.9); Potassium, Blood 3.5 mmol/L (3.5-5.5); Sodium, Blood 144 mmol/L (136-145); Total Protein, Blood 6.2 g/dL (6.4-8.2); Triglycerides 263 mg/dL (30-160)
--- NOTE | 2021-10-10 06:12 | NUR ---
SHIFT SUMMARY Patient remained A/Ox3-4 throughout night, but does have some periods of confusion. Easily redirectable. Has kept the oxygen in the whole night, only desatting with coughing and anxiety episodes. New PG in JAQUELIN. TPN infusing. VSS. Patient had periods of sleep, but no solid sleep. Anxiety continues to be an issue for the patient and precedes a desat. Has been on Airvo 60L/55-60% and maintaining above 92%. Spoke to July and updated her. Will report to dayshift RN.
--- NOTE | 2021-10-10 07:43 | NUR ---
CARE ASSUMPTION PT A&O X4, VERY ANXIOUS UPON ASSUMPTION. PT STRICT NPO, NO DOBHOFF IN PLACE. CALL TO PHARMACY W/ PHARMACY OKAY TO CRUSH & LET PT's SCHEDULED ORAL ZANAX DISOLVE ON HIS TONGUE. SPO2 > 92% ON AIRVO @ 60L, FIO2 60%. MONITOR SHOWING ST, HR 110s-120s. OTHER VSS. PPN INFUSING @ 45 ML/HR, CALL TO MACHINE II ENGRAVER TO VERIFY PPN INFUSION RATE, NURSING PARENTERAL NUTRITION ORDER ADJUSTED TO MATCH PPN ORDER IN EMAR & PPN NOW INFUSING @ GOAL RATE PER MACHINE II ENGRAVER ORDERS. PT NOW AT BEDSIDE, ASSISTING PT TO MEDITATE & RELAX. PT NOW SLEEPING W/ AT BEDSIDE.
[2021-10-10 09:55] LABS: Vancomycin, Trough 21.4 ug/mL (5.0-10.0)
--- NOTE | 2021-10-10 12:10 | NUR ---
UPDATE ATTEMPT TO PLACE PT ON CPAP FOR SLEEP. PT ASSISTING THIS NURSE W/ REMOVING HI-RISHABH NC, CPAP MASK THEN PLACED & JUST ABOUT TO BE FASTENED WHEN PT URGENTLY PULLED AWAY PANICKING, STATING "I FEEL LIKE I'M GOING TO PUKE!" CPAP SETTING DISCONTINUED & SWITCHED BACK TO HI-RISHABH THERAPY. PT THEN TAKING DEEP BREATHS & FIO2 TEMPORARILY PLACED ON 100%. PT THEN CALM & DENYING NEED TO "PUKE" OR ANY NAUSEA. PT THEN STATING "WHOA" MULTIPLE TIMES IN BETWEEN DEEP BREATHING & BECAME CALM AGAIN. REMAINS AT BEDSIDE ASSISTING PT W/ COACHING TO DEEP BREATHE & ASSISTING PT W/ IMAGERY MEDITATION.
--- NOTE | 2021-10-10 13:43 | NUR ---
Pt is lying in bed this afternoon with at bedside. He reports getting "a little bit of sleep" last night. His states she's noticed he is sleeping only about 5 minutes at a time, so he never seems rested. He denies pain at this time. He had no panic attacks yesterday when we began current treatment for air hunger, pain and anxiety. However he has had a bit more anxiety today than yesterday. Encouraged him to request medication for air hunger as soon as it begins instead of waiting until he feels full blown panic. He is agreeable to try this. Dr. Frazier agreed to stop and speak with pt and to follow up on their previous conversation surrounding next steps.
--- NOTE | 2021-10-10 18:10 | NUR ---
SHIFT SUMMARY PT A&O T/O SHIFT W/ MULTIPLE EPISODES OF "PANIC ATTACKS" PT & PT LABEL THEM. PT HELPFUL IN CALMING PT & HELPING PT TO REFOCUS & DEEP BREATHE THROUGH SUCH EVENTS. MONITOR SHOWING ST, HR 100-120's. SPO2 > 92% ON AIRVO @ 60L, FIO2 55-70% TODAY W/ MULTIPLE EPISODES REQUIRING TEMPORARY INCREASE TO 100% FIO2 FOR ACTIVITY OR COUGHING. PT ALSO W/ NRB MASK AT BEDSIDE, BEING USED BY PT DURING EPISODES OF SOB/ANXIETY. PT BEING MEDICATED PER EMAR ABLE W/ SOME IMPROVEMENT, BUT EVENTS RECURRING T/O DAY. PT CONTINUES TO BE STRICT NPO W/ NO DOBHOFF IN PLACE PER PT & PT SPOUSE PREFERENCE. PPN INFUSING PER ORDERS. CBG's STABLE. THIS EVENING UPON ENTRY TO PT REQUESTING TO GET UP & "HELP ME GET THOSE TIN CANS DOWN FROM THE WALL OVER THERE. I DON'T WANT PEOPLE TO THINK I'M COPYING THEM." PT W/ NO PREVIOUS CONFUSION TODAY. PT THEN REQUESTING TO GET SOME SLEEP & "DEAL WITH THE TIN CANS LATER". PT SLEEPING IN . BED ALARM ON.
--- NOTE | 2021-10-10 18:20 | NUR ---
Spiritual Care Visit. Pt. is awake in bed and welcomes my visit. Pt. is pleasant but displayed evidence of shortness of breaths. Re-establish rapport, But Pt. aplogetically verbalizes his ability to carry on a conversation. Pt. Verbalized gratitude for the spiritual care visit.
--- NOTE | 2021-10-10 21:14 | NUR ---
This RN was unable to locate patients Fentanyl patch. Contacted dayshift RN who confirmed that it came off during dayshift and wasn't replaced. Replaced Fentanyl patch near the L upper shoulder.
--- NOTE | 2021-10-10 21:46 | NUR ---
This RN contacted hospitalist regarding patients delirium and hallucinations with the inability to sleep. New orders received.
--- NOTE | 2021-10-11 05:16 | NUR ---
SHIFT SUMMARY At beginning of shift, patient was experiencing paranoid delusions. Patient had not been able to sleep despite meds he's been given, and this was also confirmed by his , July. Zyprexa was ordered and patient responded very well. Patient slept 4.5 hours after the first dose, then received an additional dose and is currently sleeping. Patient makes a lot more sense now when woken up and less impulsive, although still a bit confused right after waking up but that clears very quickly. Decreased panic attacks throughout the night, which also correlated to a decrease in O2 desaturations. was able to go home and get rest tonight. VSS. Still on airvo 60L/60% and satting 92-96%. Will update dayshift RN.
[2021-10-11 05:53] LABS: Bun/Creatinine Ratio 35.1 (12.0-20.0); Calcium, Blood 8.9 mg/dL (8.5-10.1); Creatinine, Blood 0.88 mg/dL (0.60-1.20); Potassium, Blood 3.2 mmol/L (3.5-5.5)
--- NOTE | 2021-10-11 07:54 | NUR ---
CARE ASSUMPTION PT A&O TO SELF. PT INITIALLY REPORTING LOCATION "[facility]." PT REMINDED BEING IN THE HOSPITAL. PT ORIGINALLY STATING DATE "DECEMBER 09, 2021" PT THEN GUESSING MONTH OCTOBER, THEN STATING SEPTEMBER. PT SPEECH MUMBLED & SLIGHTLY GARBLED THIS AM. PT VSS. MONITOR SHOWING ST, HR 100-120's. SPO2 > 92% ON HFT @ 60L, 60% FIO2. PT REPORTING 9/10 PAIN ACROSS CHEST/RIBS. PRN IV FENTANYL GIVEN PER EMAR W/ PT NOW RESTING/SLEEPING IN . BED ALARM ON.
[2021-10-11 08:32] LABS: PCO2 Arterial 57.4 mmHg (35-45); PO2 Arterial 64.8 mmHg (80-100); pH Blood Arterial 7.49 (7.35-7.45)
--- NOTE | 2021-10-11 11:40 | NUR ---
Joint visit with Dr Frazier and this PC RN. Pt resting in bed and is on AIRVO. Spouse Betty at bedside. Provided update and discussed Pt's statements of "wanting to be done", and "I'm ready". Gentle education on comfort care philosophy with V/U made by spouse. Pt and spouse agree to comfort care. Offered therapeutic listening and answered questions. Placed order for comfort care, comfort care order set, D/C maintenance medications, and added zyprexa ODT for comfort per V/O from Dr Frazier. Spoke with Primary RN Faustina, discussed case, reviewed comfort medications and recommendations. Palliative Care will remain available for supportive visits and symptom management.
--- NOTE | 2021-10-11 12:14 | NUR ---
Spiritual Care Callback. Pt. is alert and welcomes my visit. Comfort Care has begun with nurse and Palliative Care present. Spouse is also present. Pt. is able to communicate and welcomes prayer. Facilitate a life history of the Pts. iraj. [place] with Pt. and Spouse. Scripture is read as pt. begins his comfort care treatment. Spouse has questions about fees of mortuary. This surface logging systems logger contacted two of the mortuaries the spouse would consider to verify that pick and transport of the Pt. is part of the basic cremation fee. Both spouse and Pt. verbalize gratitude for the spiritual care visit.
--- NOTE | 2021-10-11 12:33 | NUR ---
Spiritual Care callback follow up. Spouse has confirmed that [facility] is the families preference for services. Pt. is a .
--- NOTE | 2021-10-11 18:44 | NUR ---
SHIFT SUMMARY PT TRANSITIONED TO COMFORT CARE TODAY PER PT & PT SPOUSE PREFERENCE W/ STATING "WE'VE BEEN TALKING A LOT ABOUT THIS. WE'RE READY." PT AT BEDSIDE T/O SHIFT. PT REPORTS PT's CHILDREN "HAVE ALREADY SAID THEIR GOODBYES." AIRVO SLOWLY BEING TITRATED DOWN. PT ON 60L, 50% FIO2 AT START OF SHIFT, NOW ON 50L 50% FIO2. PT RR SLOWING. PT MOUTH BREATHING. PT WAKES FOR MOMENTS & CONVERSES SWEETLY W/ SPOUSE AT BEDSIDE. PT MEDICATED FOR PAIN, ANXIETY & AIR HUNGER MULTIPLE TIMES T/O SHIFT, SEE EMAR. REMAINS AT BEDSIDE W/ PT.
--- NOTE | 2021-10-11 20:25 | NUR ---
ASSUMED CARE PT IS ALERT AND WORKING HARD WITH BREATHING. ON AIRVO SETTING OF 50L 40% FIO2. IS AT BEDSIDE. PT DENIES PAIN BUT IS RESTLESS. THIS NURSE BROUGHT IN ZYPREXA FOR ANXIETY PER 'S REPORT. PT DENIED FEELING ANXIOUS AND SAID "NOT RIGHT NOW." CALL LIGHT IS WITHIN REACH.
--- NOTE | 2021-10-11 22:57 | NUR ---
PT UPDATE PT IS COMFORTABLY SLEEPING. RESPIRATIONS ARE AT 9 RPM. AIRVO SETTINGS ARE 50L 35% AT THIS TIME,
--- NOTE | 2021-10-12 01:34 | NUR ---
PT UPDATE PT IS COMFORTABLE AT THIS TIME. SLEEPING AND UNRESPONSIVE TO VERBAL STIMULI. RESP ARE AT 10 RPM. SATS ARE IN THE 80'S WITH 8L OXYMIZER. AT BEDSIDE. CALL LIGHT IS WITHIN REACH.
--- NOTE | 2021-10-12 04:04 | NUR ---
PT UPDATE PT HAS BEEN TIRATED SLOWLY T/O THE NIGHT AND IS NOW ON 2L OZYMIZER. HE IS SATING IN THE HIGH 40'S. HE WAS RESPOSITINED WITH HOB IN LYING POSITION AND BREATH SOUNDS SOUNDED WET SO ASKED FOR HOB BE ELEVATED AGAIN. HE WAS MEDICATED PER EMAR. IS AT BEDSIDE. CALL LIGHT IS WITHIN REACH.
--- NOTE | 2021-10-12 04:50 | NUR ---
FINAL SUMMARY PT PASSED AT 0420. WAS ON 2L NC. NO RESP DISTRESS, NO ANXIETY. AT BEDSIDE. DR MEHTA CALLED AND NOTIFIED.
== END 2021-10-12 07:30 | DRG 177 ==
LOC: ER 21:08 → PCU 09-22 00:50 → MEDS 09-22 00:50 → ICUW 09-22 00:50 → ER 09-22 02:00 → MEDS 09-22 02:05 → ICUW 09-24 10:51 → PCU 10-02 14:25
PROVIDERS: Emergency Medicine; Internal Medicine; Internal Medicine Critical Care Medicine; Internal Medicine Hematology & Oncology; Student in an Organized Health Care Education/Training Program; ADMIT Internal Medicine
PROC: 5A0955A Assistance with Respiratory Ventilation, Greater than 96 Consecutive Hours, High Flow/Velocity Cannula (ICD-10-PCS; principal; 2021-09-22)
PROC: 3E03329 Introduction of Other Anti-infective into Peripheral Vein, Percutaneous Approach (ICD-10-PCS; 2021-09-22)
DX: J69.0 Pneumonitis due to inhalation of food and vomit (principal); J96.21 Acute and chronic respiratory failure with hypoxia; C79.51 Secondary malignant neoplasm of bone; C78.00 Secondary malignant neoplasm of unspecified lung; E46 Unspecified protein-calorie malnutrition; M84.48XA Pathological fracture, other site, initial encounter for fracture; D64.9 Anemia, unspecified; Z66 Do not resuscitate; K21.9 Gastro-esophageal reflux disease without esophagitis; Z51.5 Encounter for palliative care; E78.5 Hyperlipidemia, unspecified; D63.8 Anemia in other chronic diseases classified elsewhere; F32.A Depression, unspecified; Z79.899 Other long term (current) drug therapy; Z85.46 Personal history of malignant neoplasm of prostate; F41.1 Generalized anxiety disorder; C61 Malignant neoplasm of prostate; Z20.822 Contact with and (suspected) exposure to COVID-19; J47.9 Bronchiectasis, uncomplicated; Z78.1 Physical restraint status; R00.0 Tachycardia, unspecified; E78.00 Pure hypercholesterolemia, unspecified; K59.03 Drug induced constipation; T40.2X5A Adverse effect of other opioids, initial encounter; Z68.25 Body mass index [BMI] 25.0-25.9, adult; D70.1 Agranulocytosis secondary to cancer chemotherapy; T45.1X5A Adverse effect of antineoplastic and immunosuppressive drugs, initial encounter; J70.0 Acute pulmonary manifestations due to radiation
CPT/HCPCS: 0202U; 36415; 36600; 70450; 71045; 71260; 74230; 80048; 80053; 80069; 80202; 82784; 82803; 82947; 83605; 83735; 83880; 84100; 84153; 84443; 84478; 84484; 85025; 85027; 87040; 87070; 87205; 87449; 92526; 92610; 92611; 93005; 93010; 93308; 93321; 94640; 94660; 94664; 94760; 94762; 96374-59; 96375-59; 97110; 97162; 99285-25; A9270; C1751; C9113; J0610; J0692; J1160; J1650; J1940; J2060; J2270; J2543; J2920; J2930; J3010; J3370; J3420; J3475; J7030; J7040; J7050; J7060; J7131; J7512; Q9967; U0004